=== PATIENT | male | born 1980 | race American Indian/Alaskan Native ===

== ENCOUNTER 2018-01-29 19:03 | Emergency (ER) | payer SELFPAY ==
[~2018-01-29] VITALS: Ht 175.3 cm; Wt 136.1 kg
[~2018-01-29 19:03] MED LIST: AMOX1XR PO; CEPH500 PO; DIPATR PO; HYDACE5 PO; IBUP800 PO; KETO10 PO; OXYACE5T PO; PROM25 PO; RXDIPATR PO; RXSULTRIDS PO; SULTRIDS PO
[2018-01-29] MEDS ORDERED: Roxicodone5 MG PO (21:29)
== END 2018-01-29 21:32 | disposition home or self-care (01) ==
LOC: ER 19:03
DX: S46.212A Strain of muscle, fascia and tendon of other parts of biceps, left arm, initial encounter (principal); X50.0XXA Overexertion from strenuous movement or load, initial encounter; Z88.5 Allergy status to narcotic agent; F17.200 Nicotine dependence, unspecified, uncomplicated
CPT/HCPCS: 73030; 73080; 99283

== ENCOUNTER 2018-10-23 07:54 | Inpatient (IN) | payer OTHER ==
[~2018-10-23] VITALS: Ht 175.3 cm; Wt 124.3 kg
[~2018-10-23 07:54] MED LIST changes: +Roxicodone5 MG PO
[2018-10-23 08:43] LABS: BASOPHILS ABSOLUTE AUTO 0.09 K/mm3 (0.00-0.23); BASOPHILS PERCENT AUTO 0 % (0-2); EOSINOPHILS ABSOLUTE AUTO 0.01 K/mm3 (0.00-0.68); EOSINOPHILS PERCENT AUTO 0 % (0-6); Hematocrit 52.9 % (37.0-53.0); Hemoglobin 18.9 g/dL (13.5-17.5); IMMATURE GRAN ABSOLUTE AUTO 0.23 K/mm3 (0.00-0.10); IMMATURE GRAN PERCENT AUTO 1 % (0-1); LYMPHOCYTES ABSOLUTE AUTO 1.28 K/mm3 (0.84-5.20); LYMPHOCYTES PERCENT AUTO 5 % (21-46); MONOCYTES ABSOLUTE AUTO 1.44 K/mm3 (0.16-1.47); MONOCYTES PERCENT AUTO 5 % (4-13); Mean Corpuscular HGB 33.2 pg (26.0-34.0); Mean Corpuscular HGB Conc 35.7 g/dL (31.5-36.5); Mean Corpuscular Volume 93 fL (80-100); Mean Platelet Volume 9.6 fL (9.1-12.4); NEUTROPHILS ABSOLUTE AUTO 25.67 K/mm3 (1.96-9.15); NEUTROPHILS PERCENT AUTO 89 % (41-73); Platelet Count 248 K/mm3 (150-400); RDW Coefficient Variation 12.4 % (11.7-14.2); RDW Standard Deviation 41.9 fL (35.1-46.3); White Blood Cell Count 28.72 K/mm3 (4.00-11.30)
[2018-10-23 08:59] LABS: Albumin, Blood 3.4 g/dL (3.4-5.0); Albumin/Globulin Ratio 0.8 (0.8-1.8); Bilirubin, Total 1.1 mg/dL (0.1-1.0); Bun/Creatinine Ratio 15.2 (12.0-20.0); Calcium, Blood 8.3 mg/dL (8.5-10.1); Creatinine, Blood 2.04 mg/dL (0.60-1.20); Globulin, Blood 4.4 g/dL (2.2-4.0); Potassium, Blood 4.4 mmol/L (3.5-5.5); Total Protein, Blood 7.8 g/dL (6.4-8.2)
[2018-10-23 09:08] LABS: BAND PERCENT MAN 14 % (0-8); BASOPHILS PERCENT MAN 0 % (0-2); EOSINOPHILS PERCENT MAN 0 % (0-6); LYMPHOCYTES ABSOLUTE MAN 0.28 K/mm3 (0.84-5.20); LYMPHOCYTES PERCENT MAN 1 % (21-46); MONOCYTES ABSOLUTE MAN 0.57 K/mm3 (0.16-1.47); MONOCYTES PERCENT MAN 2 % (4-13); MYELOCYTE ABSOLUTE MAN 0.28 K/mm3 (0.00-0.00); MYELOCYTE PERCENT MAN 1 % (0-0); NEUTROPHILS ABSOLUTE MAN 27.57 K/mm3 (1.96-9.15); SEG NEUTROPHILS PERCENT MAN 82 % (41-73); TOTAL CELLS COUNTED 100
--- NOTE | 2018-10-23 13:35 | NUR ---
PT TO ROOM 213 FROM ER VIA G[facility]. PT ALERT AND ORIENTED. FAMILY ARRIVES WITH PT. PT AMBULATORY, AMSWERS QUESTIONS APPROPRIATELY. STATES HE USUALLY SMOKES 1/2PPD BUT IS WILLING TO TRY A NICOTINE PATCH. DRINKS 2 22OZ BEERS AND 2-4 SHOTS OF FIREBALL A DAY. STARTED WITH ABD PAIN A FEW DAYS AGO.
--- NOTE | 2018-10-23 13:40 | NUR ---
PT UP TO RR.
--- NOTE | 2018-10-23 13:50 | NUR ---
URINE COLLECTED AND SENT TO LAB. PT OFF UNIT AT THIS TIME WITH FAMILY.
[2018-10-23 14:13] LABS: Source, Urine Clean Catch
[2018-10-23 14:15] LABS: Appearance, Urine Hazy (Clear); Blood, Urine 5+ (Neg); Color, Urine Yellow (P-Yellow); Glucose Qualitative, Urine 3+ (Neg); Ketones, Urine 1+ (Neg); Leukocyte Esterase, Urine 1+ (Neg); Nitrite, Urine Neg (Neg); Protein, Urine 3+ (Neg); Specific Gravity, Urine 1.025 (1.003-1.022); Urobilinogen, Urine 1+ (Normal)
[2018-10-23 14:32] LABS: Bilirubin, Urine 1+ (Neg)
[2018-10-23 14:34] LABS: Red Blood Cells, Urine 0-2 /hpf (0-2)
[2018-10-23 14:35] LABS: Bacteria Few /hpf; Squamous Epithelial Cells Rare /hpf (Few)
--- NOTE | 2018-10-23 14:35 | NUR ---
2ND IV PLACED TO RIGHT FA. ATTEMPTS X2. PT MEDICATED WITH ZOFRAN AND DILAUDID PER ORDERS. IVF STARTED PER EMAR. PT SITTING IN BED. FAMILY AT BEDSIDE.
--- NOTE | 2018-10-23 15:30 | NUR ---
pt resting in position of comfort. nadn. will cont to monitor.
--- NOTE | 2018-10-23 15:56 | NUR ---
PT UP TO RR INDEPENDENTLY. FAMILY AT BEDSIDE.
--- NOTE | 2018-10-23 18:18 | NUR ---
PT MEDICATED WITH INSULIN 6 UNITS PER EMAR. ALSO DILAUDID AND ZOFRAN GIVEN. LIGHTS DIMMED.
[2018-10-24 04:38] LABS: BASOPHILS ABSOLUTE AUTO 0.06 K/mm3 (0.00-0.23); BASOPHILS PERCENT AUTO 0 % (0-2); EOSINOPHILS ABSOLUTE AUTO 0.01 K/mm3 (0.00-0.68); EOSINOPHILS PERCENT AUTO 0 % (0-6); Hematocrit 45.4 % (37.0-53.0); Hemoglobin 15.7 g/dL (13.5-17.5); IMMATURE GRAN ABSOLUTE AUTO 0.14 K/mm3 (0.00-0.10); IMMATURE GRAN PERCENT AUTO 1 % (0-1); LYMPHOCYTES ABSOLUTE AUTO 1.33 K/mm3 (0.84-5.20); LYMPHOCYTES PERCENT AUTO 6 % (21-46); MONOCYTES ABSOLUTE AUTO 1.36 K/mm3 (0.16-1.47); MONOCYTES PERCENT AUTO 6 % (4-13); Mean Corpuscular HGB 33.3 pg (26.0-34.0); Mean Corpuscular HGB Conc 34.6 g/dL (31.5-36.5); Mean Platelet Volume 9.8 fL (9.1-12.4); NEUTROPHILS PERCENT AUTO 87 % (41-73); Platelet Count 229 K/mm3 (150-400); RDW Coefficient Variation 12.5 % (11.7-14.2); RDW Standard Deviation 44.5 fL (35.1-46.3); Red Blood Cell Count 4.71 M/mm3 (4.30-5.90)
[2018-10-24 04:44] LABS: Mean Corpuscular Volume 96 fL (80-100)
[2018-10-24 04:55] LABS: Albumin, Blood 2.7 g/dL (3.4-5.0); Albumin/Globulin Ratio 0.7 (0.8-1.8); Bilirubin, Total 0.8 mg/dL (0.1-1.0); Bun/Creatinine Ratio 21.3 (12.0-20.0); Calcium, Blood 6.5 mg/dL (8.5-10.1); Creatinine, Blood 2.02 mg/dL (0.60-1.20); Globulin, Blood 3.8 g/dL (2.2-4.0); Potassium, Blood 4.6 mmol/L (3.5-5.5); Total Protein, Blood 6.5 g/dL (6.4-8.2)
--- NOTE | 2018-10-24 06:55 | NUR ---
REPORT FROM TRVA Lock RN. ASSUMED PT CARE.
--- NOTE | 2018-10-24 07:08 | NUR ---
PT VSS T/O NIGHT. PT REMAINS QUITE PAINFUL, MED W/1MG IV DILAUDID PRN. PT DENIED NAUSEA, REP HAVING DIARRHEA NOW. URINE SABA, OUTPUT DEC. PT NPO PER ORDERS, IVF CONT. PT AMB INDEP IN ROOM, IS USING CALL LIGHT FOR ASSISTNACE, REP GIVEN TO ONCOMING RN.
--- NOTE | 2018-10-24 07:35 | NUR ---
PT STATES PAIN OK AT THIS TIME. DENIES NAUSEA. DENIES NEEDS. DENIES HALLUCINATIONS AND SWEATING. SEE ASSESSMENT.
--- NOTE | 2018-10-24 08:00 | NUR ---
PT UP TO SHOWER. NEW GOWN AND PANTS PROVIDED. PT IV WRAPPED. TO SHOWER INDEPENDENTLY.
--- NOTE | 2018-10-24 08:46 | NUR ---
PT MEDICATED PER EMAR. LIGHTS DIMMED AND DOOR CLOSED FOR PRIVACY. IV INFUSING WELL. PT FEELS BETTER AFTER SHOWER.
--- NOTE | 2018-10-24 09:15 | NUR ---
PT RESTING IN POSITION OF COMFORT. APPEARS TO BE SLEEPING.
--- NOTE | 2018-10-24 10:15 | NUR ---
DR ISTRATE TO ROOM. PLAN TO REPEAT LABS. ADVANCE DIET TO CLEARS. SPRITE PROVIDED TO PT. WILL MEDICATED FOR PAIN 02/02.
--- NOTE | 2018-10-24 10:44 | NUR ---
PT MEDICATED WITH DILAUDID PER ORDERS FOR PAIN 02/02.
--- NOTE | 2018-10-24 11:30 | NUR ---
PT APPEARS TO BE RESTING IN POSITION OF COMFORT. EYES CLOSED. RESP EVEN AND NON LABORED.
--- NOTE | 2018-10-24 12:55 | NUR ---
PT MEDICATED FOR C/O PAIN. 6 UNITS OF INSULIN GIVEN FOR CBG OF 330. BANANA BAG STARTED. PT WITH FAMILY AT BEDSIDE.
--- NOTE | 2018-10-24 13:40 | NUR ---
PT AMB OFF UNIT WITH FAMILY.
--- NOTE | 2018-10-24 14:59 | NUR ---
ICE AND DIET SODA PROVIDED. ADDITIONAL FAMILY PRESENT.
--- NOTE | 2018-10-24 16:30 | NUR ---
PT RESTING MORE COMFORTABLY. FAMILY AT BEDSIDE.
--- NOTE | 2018-10-24 19:00 | NUR ---
PT MEDICATED WITH DILAUDID AND INSULIN PER ORDERS.
--- NOTE | 2018-10-25 03:58 | NUR ---
SHIFT SUMMARY: PT A&O X4. CONTINUES TO BE TACHYCARDIC WITH HR RANGING FROM 100-110, OTHERWISE VS WNL. IS PAINFUL T/O SHIFT. GIVEN DILAUDID PRN PER EMAR. LIDO PATCH APPLIED TO BACK. USING HEAT PAD ON ABD. C/O N/V ONCE; EMESIS X1. PT NPO AT THIS TIME PER ORDERS. FLUIDS INFUSING. IND AND AMBULATING IN ROOM. PT OCCASIONALLY GOES OUTSIDE TO SMOKE; PT EDUCATED ON SMOKING CESSATION SEVERSAL TIMES. CIWA'S STABLE RANGING FROM 0-4.
[2018-10-25 04:54] LABS: BASOPHILS ABSOLUTE AUTO 0.04 K/mm3 (0.00-0.23); BASOPHILS PERCENT AUTO 0 % (0-2); EOSINOPHILS ABSOLUTE AUTO 0.01 K/mm3 (0.00-0.68); EOSINOPHILS PERCENT AUTO 0 % (0-6); Hematocrit 38.4 % (37.0-53.0); Hemoglobin 13.5 g/dL (13.5-17.5); IMMATURE GRAN ABSOLUTE AUTO 0.28 K/mm3 (0.00-0.10); IMMATURE GRAN PERCENT AUTO 2 % (0-1); LYMPHOCYTES ABSOLUTE AUTO 1.05 K/mm3 (0.84-5.20); LYMPHOCYTES PERCENT AUTO 7 % (21-46); MONOCYTES ABSOLUTE AUTO 1.22 K/mm3 (0.16-1.47); MONOCYTES PERCENT AUTO 8 % (4-13); Mean Corpuscular HGB 33.6 pg (26.0-34.0); Mean Corpuscular HGB Conc 35.2 g/dL (31.5-36.5); Mean Corpuscular Volume 96 fL (80-100); NEUTROPHILS ABSOLUTE AUTO 12.35 K/mm3 (1.96-9.15); NEUTROPHILS PERCENT AUTO 83 % (41-73); NRBC ABSOLUTE 0.05 K/mm3 (0.00-0.02); NRBC Auto 0.3 /100 WBC (0.0-0.2); Platelet Count 189 K/mm3 (150-400); RDW Coefficient Variation 12.3 % (11.7-14.2); RDW Standard Deviation 43.1 fL (35.1-46.3); Red Blood Cell Count 4.02 M/mm3 (4.30-5.90); White Blood Cell Count 14.95 K/mm3 (4.00-11.30)
[2018-10-25 05:11] LABS: Alanine Aminotransfer (ALT/SGP 21 U/L (12-78); Albumin, Blood 2.3 g/dL (3.4-5.0); Albumin/Globulin Ratio 0.6 (0.8-1.8); Alk Phos 82 U/L (50-136); Amylase, Blood 311 U/L (25-115); Anion Gap 9 mmol/L (6-16); Aspartate Aminotrans (AST/SGOT 45 U/L (12-37); Bilirubin, Total 0.7 mg/dL (0.1-1.0); Blood Urea Nitrogen 23 mg/dL (8-24); Bun/Creatinine Ratio 27.2 (12.0-20.0); CO2, Blood 24 mmol/L (21-32); Calcium, Blood 6.5 mg/dL (8.5-10.1); Chloride, Blood 97 mmol/L (98-108); Creatinine, Blood 0.85 mg/dL (0.60-1.20); Glomerular Filtration Rate >60 (60-); Glucose, Blood 225 mg/dL (70-99); Potassium, Blood 3.9 mmol/L (3.5-5.5); Sodium, Blood 130 mmol/L (136-145); Total Protein, Blood 6.3 g/dL (6.4-8.2)
--- NOTE | 2018-10-25 08:52 | NUR ---
ISTRATE RECENTLY HERE.
--- NOTE | 2018-10-25 18:42 | NUR ---
SHIFT SUMMARY PT TOLERATING SMALL AMT OF C.L.. PT BEEN ASSISTED WITH ADL'S PRN. PT BEEN MED FOR PAIN. PT BEEN EDUCATED ON SMOKING CESSATION. PT REPORTS NO LONGER HAVING SMALL AMT OF EMESIS HE DID EARLIER THIS AM WHEN DR HERRERA WAS PRESENT. PT UP IND.
--- NOTE | 2018-10-26 04:34 | NUR ---
SHIFT SUMMARY: PT HAS DONE WELL THIS SHIFT. NO COMPLAINTS OF N/V. NO EMESIS. PAIN MANAGED WITH 1MG OF DILAUDID PER EMAR. JARETH CLR LIQ DIET. VOIDING WELL. CONTINUES TO BURP, NO FLATUS. PT IND IN ROOM. OOB FREQ. FLUIDS INFUSING. NO CONCERNS AT THIS TIME.
[2018-10-26 05:38] LABS: Hematocrit 34.1 % (37.0-53.0); Hemoglobin 12.1 g/dL (13.5-17.5); Mean Corpuscular HGB 33.4 pg (26.0-34.0); Mean Corpuscular HGB Conc 35.5 g/dL (31.5-36.5); Mean Corpuscular Volume 94 fL (80-100); Mean Platelet Volume 9.3 fL (9.1-12.4); NRBC ABSOLUTE 0.23 K/mm3 (0.00-0.02); NRBC Auto 1.3 /100 WBC (0.0-0.2); Platelet Count 191 K/mm3 (150-400); RDW Coefficient Variation 12.1 % (11.7-14.2); RDW Standard Deviation 42.3 fL (35.1-46.3); Red Blood Cell Count 3.62 M/mm3 (4.30-5.90); White Blood Cell Count 17.79 K/mm3 (4.00-11.30)
[2018-10-26 06:18] LABS: Alanine Aminotransfer (ALT/SGP 21 U/L (12-78); Albumin, Blood 2.2 g/dL (3.4-5.0); Albumin/Globulin Ratio 0.5 (0.8-1.8); Alk Phos 78 U/L (50-136); Amylase, Blood 110 U/L (25-115); Anion Gap 10 mmol/L (6-16); Aspartate Aminotrans (AST/SGOT 35 U/L (12-37); Bilirubin, Total 0.7 mg/dL (0.1-1.0); Blood Urea Nitrogen 14 mg/dL (8-24); Bun/Creatinine Ratio 23.1 (12.0-20.0); CO2, Blood 25 mmol/L (21-32); Calcium, Blood 7.4 mg/dL (8.5-10.1); Chloride, Blood 93 mmol/L (98-108); Creatinine, Blood 0.61 mg/dL (0.60-1.20); Globulin, Blood 4.2 g/dL (2.2-4.0); Glomerular Filtration Rate >60 (60-); Glucose, Blood 184 mg/dL (70-99); Potassium, Blood 3.5 mmol/L (3.5-5.5); Sodium, Blood 128 mmol/L (136-145); Total Protein, Blood 6.4 g/dL (6.4-8.2)
[2018-10-26 06:50] LABS: BAND PERCENT MAN 5 % (0-8); BASOPHILS PERCENT MAN 0 % (0-2); EOSINOPHILS PERCENT MAN 0 % (0-6); LYMPHOCYTES ABSOLUTE MAN 1.77 K/mm3 (0.84-5.20); LYMPHOCYTES PERCENT MAN 10 % (21-46); MONOCYTES ABSOLUTE MAN 2.31 K/mm3 (0.16-1.47); MONOCYTES PERCENT MAN 13 % (4-13); MYELOCYTE ABSOLUTE MAN 0.35 K/mm3 (0.00-0.00); MYELOCYTE PERCENT MAN 2 % (0-0); NEUTROPHILS ABSOLUTE MAN 13.34 K/mm3 (1.96-9.15); SEG NEUTROPHILS PERCENT MAN 70 % (41-73); TOTAL CELLS COUNTED 100
--- NOTE | 2018-10-26 08:29 | NUR ---
IMAGING: ULTRASOUND IN ROOM. MD ORDER FOR KUB AND GUIAC STOOL R/T PATIENT SYMPTOMS OF DARK STOOL AND NO FLATUS.
[2018-10-26 12:58] LABS: Stool Occult Blood Guaiac 1 Pos (Neg)
--- NOTE | 2018-10-26 13:51 | NUR ---
STOOL: PT HAD POSITIVE GUIAC. NOTIFIED. NEW ORDERS ENTERED.
[2018-10-26 18:43] LABS: Adenovirus F 40/41 Not Detected (NOT DETECT); Astrovirus Not Detected (NOT DETECT); Campylobacter Sp Not Detected (NOT DETECT); Cryptosporidium Not Detected (NOT DETECT); Cyclospora Cayetanensis Not Detected (NOT DETECT); E. Coli O157 Not Detected (NOT DETECT); Entamoeba Histolytica Not Detected (NOT DETECT); Enteroaggregative E. coli-EAEC Not Detected (NOT DETECT); Enteropathogenic E. coli-EPEC Detected (NOT DETECT); Enterotoxigenic E. coli-ETEC Not Detected (NOT DETECT); Giardia Lamblia Not Detected (NOT DETECT); Norovirus GI/GII Not Detected (NOT DETECT); Plesiomonas Shigelloides Not Detected (NOT DETECT); Rotavirus A Not Detected (NOT DETECT); Salmonella Sp Not Detected (NOT DETECT); Sapovirus Not Detected (NOT DETECT); Shiga Toxin-prod E. coli-STEC Not Detected (NOT DETECT); Shigella/Enteroin E. coli-EIEC Not Detected (NOT DETECT); Vibrio Cholerae Not Detected (NOT DETECT); Vibrio Sp Not Detected (NOT DETECT); Yersinia Enterocolitica Not Detected (NOT DETECT)
--- NOTE | 2018-10-26 18:45 | NUR ---
pt has cont to have dark small stools and emesis this shift, occult stool was positive, md aware. pt started on protonix, compazine prn and simethicone drops. cont iv fluids. pt may advance diet as tolerated. pt up to ambulate indep. abd distended. shower x2 today. us and abd xray completed this am. pt has no complaints of pain this shift. uses call light appropriately prn.
[2018-10-27 06:17] LABS: Hematocrit 31.6 % (37.0-53.0); Hemoglobin 10.9 g/dL (13.5-17.5); Mean Corpuscular HGB 32.3 pg (26.0-34.0); Mean Corpuscular HGB Conc 34.5 g/dL (31.5-36.5); Mean Corpuscular Volume 94 fL (80-100); NRBC ABSOLUTE 0.33 K/mm3 (0.00-0.02); NRBC Auto 1.5 /100 WBC (0.0-0.2); Platelet Count 200 K/mm3 (150-400); RDW Coefficient Variation 12.4 % (11.7-14.2); RDW Standard Deviation 42.1 fL (35.1-46.3); Red Blood Cell Count 3.37 M/mm3 (4.30-5.90); White Blood Cell Count 21.93 K/mm3 (4.00-11.30)
[2018-10-27 06:30] LABS: Alanine Aminotransfer (ALT/SGP 20 U/L (12-78); Albumin, Blood 2.1 g/dL (3.4-5.0); Albumin/Globulin Ratio 0.5 (0.8-1.8); Alk Phos 94 U/L (50-136); Anion Gap 11 mmol/L (6-16); Aspartate Aminotrans (AST/SGOT 28 U/L (12-37); Bilirubin, Total 0.8 mg/dL (0.1-1.0); Blood Urea Nitrogen 14 mg/dL (8-24); Bun/Creatinine Ratio 23.4 (12.0-20.0); CO2, Blood 26 mmol/L (21-32); Calcium, Blood 7.6 mg/dL (8.5-10.1); Chloride, Blood 94 mmol/L (98-108); Globulin, Blood 4.1 g/dL (2.2-4.0); Glomerular Filtration Rate >60 (60-); Glucose, Blood 212 mg/dL (70-99); Potassium, Blood 3.1 mmol/L (3.5-5.5); Sodium, Blood 131 mmol/L (136-145); Total Protein, Blood 6.2 g/dL (6.4-8.2)
[2018-10-27 06:36] LABS: BAND PERCENT MAN 7 % (0-8); BASOPHILS PERCENT MAN 0 % (0-2); EOSINOPHILS PERCENT MAN 0 % (0-6); LYMPHOCYTES ABSOLUTE MAN 0.87 K/mm3 (0.84-5.20); LYMPHOCYTES PERCENT MAN 4 % (21-46); METAMYELOCYTE ABSOLUTE MAN 0.21 K/mm3 (0.00-0.00); METAMYELOCYTE PERCENT MAN 1 % (0-0); MONOCYTES ABSOLUTE MAN 1.53 K/mm3 (0.16-1.47); MONOCYTES PERCENT MAN 7 % (4-13); MYELOCYTE ABSOLUTE MAN 0.43 K/mm3 (0.00-0.00); MYELOCYTE PERCENT MAN 2 % (0-0); NEUTROPHILS ABSOLUTE MAN 18.85 K/mm3 (1.96-9.15); SEG NEUTROPHILS PERCENT MAN 79 % (41-73); TOTAL CELLS COUNTED 100
--- NOTE | 2018-10-27 07:00 | NUR ---
REPORT FROM MARY CARDONA. ASSUMED PT CARE. PT APPEARS TO BE SLEEPING, NADN. IVF INFUSING. RESP EVEN AND NON-LABORED.
--- NOTE | 2018-10-27 07:25 | NUR ---
PT RESTING IN ARM CHAIR. NADN. CALL LIGHT IN REACH. 20G TO LEFT AC WITH IVF INFUSING.
--- NOTE | 2018-10-27 07:46 | NUR ---
SHIFT SUMMARY: PT NOW ON ISOLATION R/T DETECTION OF E-COLI. RECIEVING ORAL VANCO AND CLINDAMYCIN FOR BACTERIA FOUND IN URINE. PT REPORTS HAVING 3 EPISODES OF DIARRHEA. STATES THEY WERE NORMAL IN COLOR. NO N/V THROUGHOUT NIGHT. C/O NOT GETTING SLEEP T/O NIGHT. PT OVERALL APPEARS TO BE IN DISTRESS/ILL. GIVEN 1MG DILAUDID ONCE. PAIN MANAGEMENT IMPROVING. JARETH REG DIET. FLUIDS INFUSING. IND IN RM.
--- NOTE | 2018-10-27 08:27 | NUR ---
PT MEDICATED PER EMAR. PT GIVEN IV PAIN MEDS FOR C/O PAIN 02/02. ASSESSMENT CHARTED. ROOM TIDIED BY HOUSE KEEPING.
--- NOTE | 2018-10-27 09:12 | NUR ---
PT STATES PAIN IMPROVED. ROOM TIDIED. TRAY REMOVED. PT SITTING ON SIDE OF BED.
--- NOTE | 2018-10-27 09:24 | NUR ---
PT MOVING THINGS AROUND IN ROOM. INT AT THIS TIME.
--- NOTE | 2018-10-27 09:45 | NUR ---
ISTRATE TO ROOM. PLAN TO DC HOME IF LIPASE WNL. PT AWARE.
--- NOTE | 2018-10-27 10:15 | NUR ---
PT APPEARS TO BE SLEEPING IN BED. FAMILY TO ROOM, DID NOT WANT TO DISTURB. LEFT FOR NOW.
--- NOTE | 2018-10-27 11:41 | NUR ---
PT UP IN RR INDEPENDENTLY. PENDING DC. PT MEDICATED PER EMAR. PT PLAN TO GO TO [facility] IN [place].
--- NOTE | 2018-10-27 12:50 | NUR ---
20G TO LEFT AC DC. DRESSING PLACED. PT UP TO SHOWER INDEPENDENTLY.
[2018-10-27] MEDS ORDERED: ACET325 PO (13:34)
[2018-10-27] MEDS ORDERED: Calcium Carbon500 M1 PO (13:35)
[2018-10-27] MEDS ORDERED: INSULANPEN SC (13:36)
[2018-10-27] MEDS ORDERED: INSR10I (13:41)
[2018-10-27] MEDS ORDERED: LIDO700A20 TOP (13:42)
[2018-10-27] MEDS ORDERED: METR500 PO (13:43)
[2018-10-27] MEDS ORDERED: Nicotine Patch1 EAC5 TOP (13:44)
[2018-10-27] MEDS ORDERED: ONDA4 PO (13:45)
[2018-10-27] MEDS ORDERED: SIME80CH PO (13:47)
[2018-10-27] MEDS ORDERED: VANC250 PO (13:48)
[2018-10-27] MEDS ORDERED: SACC250C PO (13:48)
--- NOTE | 2018-10-27 14:12 | NUR ---
PT DC HOME WITH FAMILY. ALL BELONGINGS SENT HOME. PT INSTRUCTIONS REVIEWED. PT VERBALIZED UNDERSTANDING.
== END 2018-10-27 14:14 | disposition home or self-care (01) | DRG 871 ==
LOC: ER 07:54 → ERHOLD 11:40 → SURS 11:40
PROVIDERS: Family Medicine; Physician Assistant; ADMIT Internal Medicine
DX: A41.9 Sepsis, unspecified organism (principal); K85.20 Alcohol induced acute pancreatitis without necrosis or infection; N39.0 Urinary tract infection, site not specified; N17.9 Acute kidney failure, unspecified; E87.1 Hypo-osmolality and hyponatremia; F17.200 Nicotine dependence, unspecified, uncomplicated; R65.20 Severe sepsis without septic shock; E11.69 Type 2 diabetes mellitus with other specified complication; E11.65 Type 2 diabetes mellitus with hyperglycemia; F90.9 Attention-deficit hyperactivity disorder, unspecified type; F31.9 Bipolar disorder, unspecified; E86.0 Dehydration; E66.9 Obesity, unspecified; F10.20 Alcohol dependence, uncomplicated; M54.9 Dorsalgia, unspecified; Z88.5 Allergy status to narcotic agent
CPT/HCPCS: 36415; 74018; 74176; 76705; 80053; 81001; 82150; 82270; 82330; 82947; 83036; 83605; 83690; 85025; 87040; 87086; 87324; 87338; 87507; 96361; 96365; 96366; 96375; 96376; 99285-25; C9113; J0696; J1170; J1650; J1815; J2405; J2765; J3411; J3475; J7030; J7042

== ENCOUNTER 2018-11-18 13:19 | Inpatient (IN) | payer OTHER ==
[~2018-11-18] VITALS: Ht 175.3 cm; Wt 108.9 kg
[~2018-11-18 13:19] MED LIST changes: +ACET325 PO; +Calcium Carbon500 M1 PO; +INSR10I SC; +INSULANPEN SC; +LIDO700A20 TOP; +METR500 PO; +Nicotine Patch1 EAC5 TOP; +ONDA4 PO; +SIME80CH PO; +VANC250 PO
[2018-11-18 13:47] LABS: BASOPHILS ABSOLUTE AUTO 0.03 K/mm3 (0.00-0.23); BASOPHILS PERCENT AUTO 0 % (0-2); EOSINOPHILS ABSOLUTE AUTO 0.07 K/mm3 (0.00-0.68); EOSINOPHILS PERCENT AUTO 1 % (0-6); Hematocrit 33.2 % (37.0-53.0); Hemoglobin 10.7 g/dL (13.5-17.5); IMMATURE GRAN ABSOLUTE AUTO 0.06 K/mm3 (0.00-0.10); IMMATURE GRAN PERCENT AUTO 0 % (0-1); LYMPHOCYTES ABSOLUTE AUTO 1.68 K/mm3 (0.84-5.20); LYMPHOCYTES PERCENT AUTO 11 % (21-46); MONOCYTES ABSOLUTE AUTO 0.89 K/mm3 (0.16-1.47); MONOCYTES PERCENT AUTO 6 % (4-13); Mean Corpuscular HGB 30.1 pg (26.0-34.0); Mean Corpuscular HGB Conc 32.2 g/dL (31.5-36.5); Mean Corpuscular Volume 94 fL (80-100); Mean Platelet Volume 8.4 fL (9.1-12.4); NEUTROPHILS ABSOLUTE AUTO 12.16 K/mm3 (1.96-9.15); NEUTROPHILS PERCENT AUTO 82 % (41-73); Platelet Count 594 K/mm3 (150-400); RDW Coefficient Variation 16.3 % (11.7-14.2); RDW Standard Deviation 54.5 fL (35.1-46.3); Red Blood Cell Count 3.55 M/mm3 (4.30-5.90); White Blood Cell Count 14.89 K/mm3 (4.00-11.30)
[2018-11-18 14:03] LABS: Alanine Aminotransfer (ALT/SGP 22 U/L (12-78); Albumin, Blood 2.9 g/dL (3.4-5.0); Albumin/Globulin Ratio 0.5 (0.8-1.8); Alk Phos 114 U/L (50-136); Anion Gap 7 mmol/L (6-16); Aspartate Aminotrans (AST/SGOT 27 U/L (12-37); Bilirubin, Total 0.8 mg/dL (0.1-1.0); Blood Urea Nitrogen 10 mg/dL (8-24); Bun/Creatinine Ratio 18.6 (12.0-20.0); CO2, Blood 25 mmol/L (21-32); Calcium, Blood 8.8 mg/dL (8.5-10.1); Chloride, Blood 101 mmol/L (98-108); Creatinine, Blood 0.54 mg/dL (0.60-1.20); Globulin, Blood 5.6 g/dL (2.2-4.0); Glomerular Filtration Rate >60 (60-); Glucose, Blood 249 mg/dL (70-99); Potassium, Blood 4.1 mmol/L (3.5-5.5); Sodium, Blood 133 mmol/L (136-145); Total Protein, Blood 8.5 g/dL (6.4-8.2)
[2018-11-18] MEDS ORDERED: FURO40 PO (17:19)
[2018-11-18] MEDS ORDERED: MAGOXI400 PO (17:20)
[2018-11-18] MEDS ORDERED: PANT40 PO (17:20)
[2018-11-18] MEDS ORDERED: THERA1 EACH PO (17:21)
[2018-11-18] MEDS ORDERED: SACC250C PO (17:32)
[2018-11-18] MEDS ORDERED: POLY500 PO (17:33)
[2018-11-18] MEDS ORDERED: Verotin-Gr Cap1 EACH PO (17:34)
[2018-11-19 03:58] LABS: BASOPHILS ABSOLUTE AUTO 0.04 K/mm3 (0.00-0.23); BASOPHILS PERCENT AUTO 0 % (0-2); EOSINOPHILS ABSOLUTE AUTO 0.16 K/mm3 (0.00-0.68); EOSINOPHILS PERCENT AUTO 1 % (0-6); Hematocrit 32.9 % (37.0-53.0); Hemoglobin 10.5 g/dL (13.5-17.5); IMMATURE GRAN ABSOLUTE AUTO 0.08 K/mm3 (0.00-0.10); IMMATURE GRAN PERCENT AUTO 1 % (0-1); LYMPHOCYTES ABSOLUTE AUTO 1.83 K/mm3 (0.84-5.20); LYMPHOCYTES PERCENT AUTO 11 % (21-46); MONOCYTES ABSOLUTE AUTO 1.17 K/mm3 (0.16-1.47); MONOCYTES PERCENT AUTO 7 % (4-13); Mean Corpuscular HGB 29.5 pg (26.0-34.0); Mean Corpuscular HGB Conc 31.9 g/dL (31.5-36.5); Mean Corpuscular Volume 92 fL (80-100); Mean Platelet Volume 8.6 fL (9.1-12.4); NEUTROPHILS ABSOLUTE AUTO 14.03 K/mm3 (1.96-9.15); NEUTROPHILS PERCENT AUTO 81 % (41-73); Platelet Count 547 K/mm3 (150-400); RDW Coefficient Variation 16.8 % (11.7-14.2); RDW Standard Deviation 55.9 fL (35.1-46.3); Red Blood Cell Count 3.56 M/mm3 (4.30-5.90); White Blood Cell Count 17.31 K/mm3 (4.00-11.30)
[2018-11-19 04:13] LABS: International Normalized Ratio 1.16; Prothrombin Time Results 12.1 Sec (9.7-11.5)
[2018-11-19 04:18] LABS: Alanine Aminotransfer (ALT/SGP 20 U/L (12-78); Albumin, Blood 2.6 g/dL (3.4-5.0); Albumin/Globulin Ratio 0.5 (0.8-1.8); Alk Phos 108 U/L (50-136); Anion Gap 10 mmol/L (6-16); Aspartate Aminotrans (AST/SGOT 22 U/L (12-37); Bilirubin, Total 0.7 mg/dL (0.1-1.0); Blood Urea Nitrogen 7 mg/dL (8-24); Bun/Creatinine Ratio 12.8 (12.0-20.0); CO2, Blood 23 mmol/L (21-32); Calcium, Blood 8.8 mg/dL (8.5-10.1); Chloride, Blood 102 mmol/L (98-108); Creatinine, Blood 0.55 mg/dL (0.60-1.20); Globulin, Blood 5.3 g/dL (2.2-4.0); Glomerular Filtration Rate >60 (60-); Glucose, Blood 149 mg/dL (70-99); Potassium, Blood 4.1 mmol/L (3.5-5.5); Sodium, Blood 135 mmol/L (136-145); Total Protein, Blood 7.9 g/dL (6.4-8.2)
--- NOTE | 2018-11-19 06:58 | NUR ---
PCU NOC SHIFT SUMMARY PATIENT ARRIVED TO UNIT VIA GURNEY FROME R AND AMBULATED TO UNIT BED. VSS ON ROOM AIR. PATIENT ASSEMENT WNL EXCEPT FOR DISTENDED ABD AND ABD PAIN. PRIMER POWDER BLENDER WET STARTED WITH NS FLUIDS. PATIENT HAD NO ACUTE EVENS T/O SHIFT. REPORTED TO [facility] NURSE LURDES MINA. REPORT GIVEN TO [facility] AND PATIENT LEFT UNIT AT APPROX 0637 FOR [facility].
== END 2018-11-19 06:37 | disposition short-term general hospital (02) | DRG 871 ==
LOC: ER 13:19 → ERHOLD 17:32 → PCU 19:05
PROVIDERS: Emergency Medicine; Nurse Practitioner Acute Care; ADMIT Internal Medicine
DX: A41.9 Sepsis, unspecified organism (principal); K85.92 Acute pancreatitis with infected necrosis, unspecified; K86.0 Alcohol-induced chronic pancreatitis; F31.9 Bipolar disorder, unspecified; F17.210 Nicotine dependence, cigarettes, uncomplicated; F10.20 Alcohol dependence, uncomplicated; F90.9 Attention-deficit hyperactivity disorder, unspecified type; E11.65 Type 2 diabetes mellitus with hyperglycemia; D64.9 Anemia, unspecified
CPT/HCPCS: 36415; 74177; 80053; 82947; 83605; 83690; 83735; 85025; 85610; 87040; 96365-59; 96375-59; 96376-59; 99285-25; J1170; J2185; J2405; J2543; J2765; J7030; J7120; Q9967

== ENCOUNTER 2018-12-22 07:06 | Inpatient (IN) | payer OTHER ==
[~2018-12-22] VITALS: Ht 175.3 cm; Wt 96.7 kg
[~2018-12-22 07:06] MED LIST changes: +FURO40 PO; +MAGOXI400 PO; +PANT40 PO; +POLY500 PO; +SACC250C PO; +THERA1 EACH PO; +Verotin-Gr Cap1 EACH PO
[2018-12-22 07:58] LABS: BASOPHILS ABSOLUTE AUTO 0.02 K/mm3 (0.00-0.23); BASOPHILS PERCENT AUTO 0 % (0-2); EOSINOPHILS PERCENT AUTO 0 % (0-6); Hematocrit 36.2 % (37.0-53.0); Hemoglobin 11.6 g/dL (13.5-17.5); IMMATURE GRAN PERCENT AUTO 1 % (0-1); LYMPHOCYTES ABSOLUTE AUTO 2.42 K/mm3 (0.84-5.20); LYMPHOCYTES PERCENT AUTO 14 % (21-46); MONOCYTES ABSOLUTE AUTO 1.29 K/mm3 (0.16-1.47); MONOCYTES PERCENT AUTO 7 % (4-13); Mean Corpuscular HGB 25.8 pg (26.0-34.0); Mean Corpuscular Volume 81 fL (80-100); Mean Platelet Volume 8.5 fL (9.1-12.4); NEUTROPHILS ABSOLUTE AUTO 13.81 K/mm3 (1.96-9.15); NEUTROPHILS PERCENT AUTO 78 % (41-73); Platelet Count 824 K/mm3 (150-400); RDW Coefficient Variation 20.9 % (11.7-14.2); RDW Standard Deviation 61.1 fL (35.1-46.3); Red Blood Cell Count 4.49 M/mm3 (4.30-5.90); White Blood Cell Count 17.64 K/mm3 (4.00-11.30)
[2018-12-22 08:13] LABS: International Normalized Ratio 1.18; Prothrombin Time Results 12.3 Sec (9.7-11.5)
[2018-12-22 08:19] LABS: Alanine Aminotransfer (ALT/SGP 17 U/L (12-78); Albumin, Blood 3.2 g/dL (3.4-5.0); Albumin/Globulin Ratio 0.5 (0.8-1.8); Alk Phos 154 U/L (50-136); Anion Gap 14 mmol/L (6-16); Aspartate Aminotrans (AST/SGOT 28 U/L (12-37); Bilirubin, Total 0.9 mg/dL (0.1-1.0); Blood Urea Nitrogen 9 mg/dL (8-24); CO2, Blood 39 mmol/L (21-32); Calcium, Blood 10.5 mg/dL (8.5-10.1); Chloride, Blood 89 mmol/L (98-108); Creatinine, Blood 0.82 mg/dL (0.60-1.20); Ethanol (Alcohol), Blood, Med <3 mg/dL; Globulin, Blood 6.2 g/dL (2.2-4.0); Glomerular Filtration Rate >60 (60-); Glucose, Blood 212 mg/dL (70-99); Magnesium, Blood 2.1 mg/dL (1.6-2.4); Potassium, Blood 2.7 mmol/L (3.5-5.5); Sodium, Blood 142 mmol/L (136-145); Total Protein, Blood 9.4 g/dL (6.4-8.2)
[2018-12-22 09:53] LABS: U Amphetamine Screen Not Detected; U Barbituate Screen Not Detected; U Benzodiazapine Screen Not Detected; U Buprenorphine Screen Not Detected; U Cannabinoids Screen Not Detected; U Cocaine Screen Not Detected; U Methadone Screen Not Detected; U Methamphetamine Screen Not Detected; U Opiates Screen DETECTED; U Oxycodone Screen Not Detected; U Phencyclidine Screen Not Detected; U Propoxyphene Screen Not Detected
[2018-12-22] MEDS ORDERED: ELIQUIS5 MG PO (12:32)
[2018-12-22] MEDS ORDERED: GABA300 PO (12:33)
[2018-12-22] MEDS ORDERED: HYDMOR8 PO (12:33)
[2018-12-22] MEDS ORDERED: INSR10I SC (12:34)
[2018-12-22] MEDS ORDERED: BASAGLAR K100 UNIT/1 SC (12:35)
--- NOTE | 2018-12-22 13:16 | NUR ---
PT ARRIVED TO THE UNIT VIA WHEELCHAIR AT 1300. IV FLUIDS RUNNING, PT COMPLAINS OF PAIN.
--- NOTE | 2018-12-22 17:19 | NUR ---
PT'S BLOOD GLUCOSE WAS 218 AT 1619. PT TOOK HIS OWN BLOOD GLUCOSE READING ON HIS OWN METER.
--- NOTE | 2018-12-22 18:25 | NUR ---
PT IS ALERT AND ORIENTED AND COOPERATIVE WITH CARE. HE IS KNOWLEDGABLE ABOUT HIS CONDITION. HE COMPLAINS OF BACK AND ABDOMEN PAIN, TREATED WITH DILAUDID. HE HAD AN EPISODE OF N/V THIS AFTERNOON, TREATED WITH ZOFRAN. THE PT TOOK HIS OWN BLOOD SUGAR THIS EVENING WITH HIS OWN MONITOR. HE HAS BEEN WALKING AROUND THE HOSPITAL WITH HIS FAMILY. WILL CONTINUE TO MONITOR
--- NOTE | 2018-12-22 18:33 | NUR ---
PT HAS A DRAIN IN HIS PANCREAS COMING OUT OF HIS LEFT BACK.
[2018-12-23 05:20] LABS: BASOPHILS ABSOLUTE AUTO 0.01 K/mm3 (0.00-0.23); BASOPHILS PERCENT AUTO 0 % (0-2); EOSINOPHILS ABSOLUTE AUTO 0.17 K/mm3 (0.00-0.68); EOSINOPHILS PERCENT AUTO 1 % (0-6); Hematocrit 27.6 % (37.0-53.0); Hemoglobin 8.5 g/dL (13.5-17.5); IMMATURE GRAN ABSOLUTE AUTO 0.08 K/mm3 (0.00-0.10); IMMATURE GRAN PERCENT AUTO 1 % (0-1); LYMPHOCYTES ABSOLUTE AUTO 2.66 K/mm3 (0.84-5.20); LYMPHOCYTES PERCENT AUTO 18 % (21-46); MONOCYTES ABSOLUTE AUTO 1.14 K/mm3 (0.16-1.47); MONOCYTES PERCENT AUTO 8 % (4-13); Mean Corpuscular HGB 25.6 pg (26.0-34.0); Mean Corpuscular HGB Conc 30.8 g/dL (31.5-36.5); Mean Corpuscular Volume 83 fL (80-100); Mean Platelet Volume 8.7 fL (9.1-12.4); NEUTROPHILS ABSOLUTE AUTO 10.73 K/mm3 (1.96-9.15); NEUTROPHILS PERCENT AUTO 73 % (41-73); Platelet Count 520 K/mm3 (150-400); RDW Coefficient Variation 21.1 % (11.7-14.2); RDW Standard Deviation 63.8 fL (35.1-46.3); Red Blood Cell Count 3.32 M/mm3 (4.30-5.90); White Blood Cell Count 14.79 K/mm3 (4.00-11.30)
[2018-12-23 05:53] LABS: Anion Gap 5 mmol/L (6-16); Blood Urea Nitrogen 10 mg/dL (8-24); Bun/Creatinine Ratio 11.8 (12.0-20.0); CO2, Blood 40 mmol/L (21-32); Calcium, Blood 8.8 mg/dL (8.5-10.1); Chloride, Blood 92 mmol/L (98-108); Creatinine, Blood 0.85 mg/dL (0.60-1.20); Glomerular Filtration Rate >60 (60-); Glucose, Blood 110 mg/dL (70-99); Potassium, Blood 2.9 mmol/L (3.5-5.5); Sodium, Blood 137 mmol/L (136-145)
--- NOTE | 2018-12-23 06:07 | NUR ---
VSS, AFEBRILE, A/O, PT MEDICATED FOR PAIN PER ORDER, PT SLEPT WELL OVERNOC BUT DID NOT SLEEP FOR VERY LONG. IVF INFUSING PER ORDER, PT TOLERATING IV ABX W/OUT ADVERSE EFFECTS, PT WATCHES THE CLOCK AND REQUESTS HIS PRN PAIN MEDICATION EXACTLY ON THE MINUTE THAT IT BECOMES AVAILABLE. NO SIGNIFICANT CHANGES NOTED. PT IS WAITING TO BE TRANSPORTED TO [facility]. WILL REPORT TO ON-COMING SHIFT.
--- NOTE | 2018-12-23 16:43 | NUR ---
PT SENT OUT TO [facility] AT 1630. PT NOTIFIED FAMILY OF TRANSFER PRIOR TO TRANSPORT. REPORT CALLED UP TO [facility] AT 1625 TO RECIEVING NURSE FOR RM 30. PAPERS SENT WITH [facility] [employer] [facility]. LACTATED RINGER RUNNING AT 150ML/HR WITH PT. PT TREATED PER EMAR FOR NAUSEA AND PAIN PRIOR TO TRANSFER.
== END 2018-12-23 16:27 | disposition short-term general hospital (02) | DRG 871 ==
LOC: ER 07:06 → MEDS 10:32
PROVIDERS: Emergency Medicine; ADMIT Internal Medicine
DX: A41.9 Sepsis, unspecified organism (principal); K85.91 Acute pancreatitis with uninfected necrosis, unspecified; K86.1 Other chronic pancreatitis; E11.9 Type 2 diabetes mellitus without complications; Z79.4 Long term (current) use of insulin; F17.210 Nicotine dependence, cigarettes, uncomplicated; E87.6 Hypokalemia; D64.9 Anemia, unspecified; F31.9 Bipolar disorder, unspecified; F10.20 Alcohol dependence, uncomplicated
CPT/HCPCS: 36415; 74177; 80048; 80053; 82947; 83605; 83690; 83735; 84100; 84132; 85025; 85610; 93005; 93010; 96361-59; 96365-59; 96375-59; 96376-59; 99285-25; C1751; C9113; G0480; J0780; J1170; J1815; J2405; J2543; J3370; J3480; J7050; J7120; Q9967

== ENCOUNTER 2019-01-22 15:10 | Emergency (ER) | payer OTHER ==
[~2019-01-22] VITALS: Ht 175.3 cm; Wt 92.5 kg
[~2019-01-22 15:10] MED LIST changes: +BASAGLAR K100 UNIT/1 SC; +ELIQUIS5 MG PO; +GABA400 PO; +HYDMOR2 PO
[2019-01-22] MEDS ORDERED: CREON DR 24,001 EACH PO (15:29)
[2019-01-22] MEDS ORDERED: PANT40 PO (15:31)
[2019-01-22] MEDS ORDERED: HYDMOR4 PO (15:32)
== END 2019-01-22 15:40 | disposition home or self-care (01) ==
LOC: ER 15:10
DX: K85.90 Acute pancreatitis without necrosis or infection, unspecified (principal); Z76.0 Encounter for issue of repeat prescription; F31.9 Bipolar disorder, unspecified; F90.9 Attention-deficit hyperactivity disorder, unspecified type; E11.9 Type 2 diabetes mellitus without complications; F17.200 Nicotine dependence, unspecified, uncomplicated; Z88.6 Allergy status to analgesic agent; Z79.4 Long term (current) use of insulin
CPT/HCPCS: 99281

== ENCOUNTER 2019-01-27 11:46 | Emergency (ER) | payer OTHER ==
[~2019-01-27] VITALS: Ht 175.3 cm; Wt 90.7 kg
[~2019-01-27 11:46] MED LIST changes: +CREON DR 24,001 EACH PO; +HYDMOR4 PO
[2019-01-27] MEDS ORDERED: HYDMOR4 PO (12:24)
== END 2019-01-27 12:30 | disposition home or self-care (01) ==
LOC: ER 11:46
DX: Z76.0 Encounter for issue of repeat prescription (principal); K85.91 Acute pancreatitis with uninfected necrosis, unspecified; F17.200 Nicotine dependence, unspecified, uncomplicated; F31.9 Bipolar disorder, unspecified; E11.9 Type 2 diabetes mellitus without complications; Z88.5 Allergy status to narcotic agent; Z79.4 Long term (current) use of insulin; Z90.49 Acquired absence of other specified parts of digestive tract
CPT/HCPCS: 99281

== ENCOUNTER 2019-02-03 14:52 | Emergency (ER) | payer OTHER ==
[~2019-02-03] VITALS: Ht 175.3 cm; Wt 89.8 kg
[2019-02-03 15:48] LABS: BASOPHILS ABSOLUTE AUTO 0.02 K/mm3 (0.00-0.23); BASOPHILS PERCENT AUTO 0 % (0-2); EOSINOPHILS ABSOLUTE AUTO 0.07 K/mm3 (0.00-0.68); EOSINOPHILS PERCENT AUTO 1 % (0-6); Hematocrit 36.6 % (37.0-53.0); Hemoglobin 11.3 g/dL (13.5-17.5); IMMATURE GRAN ABSOLUTE AUTO 0.02 K/mm3 (0.00-0.10); IMMATURE GRAN PERCENT AUTO 0 % (0-1); LYMPHOCYTES ABSOLUTE AUTO 1.65 K/mm3 (0.84-5.20); LYMPHOCYTES PERCENT AUTO 22 % (21-46); MONOCYTES ABSOLUTE AUTO 0.34 K/mm3 (0.16-1.47); MONOCYTES PERCENT AUTO 5 % (4-13); Mean Corpuscular HGB 24.9 pg (26.0-34.0); Mean Corpuscular HGB Conc 30.9 g/dL (31.5-36.5); Mean Corpuscular Volume 81 fL (80-100); Mean Platelet Volume 9.6 fL (9.1-12.4); NEUTROPHILS ABSOLUTE AUTO 5.38 K/mm3 (1.96-9.15); NEUTROPHILS PERCENT AUTO 72 % (41-73); Platelet Count 359 K/mm3 (150-400); RDW Coefficient Variation 20.4 % (11.7-14.2); RDW Standard Deviation 60.5 fL (35.1-46.3); Red Blood Cell Count 4.53 M/mm3 (4.30-5.90); White Blood Cell Count 7.48 K/mm3 (4.00-11.30)
[2019-02-03 16:11] LABS: Alanine Aminotransfer (ALT/SGP 34 U/L (12-78); Albumin, Blood 3.5 g/dL (3.4-5.0); Albumin/Globulin Ratio 0.7 (0.8-1.8); Alk Phos 152 U/L (50-136); Anion Gap 8 mmol/L (6-16); Aspartate Aminotrans (AST/SGOT 41 U/L (12-37); Bilirubin, Total 0.5 mg/dL (0.1-1.0); Blood Urea Nitrogen 6 mg/dL (8-24); Bun/Creatinine Ratio 8.8 (12.0-20.0); CO2, Blood 26 mmol/L (21-32); Calcium, Blood 9.7 mg/dL (8.5-10.1); Chloride, Blood 105 mmol/L (98-108); Creatinine, Blood 0.69 mg/dL (0.60-1.20); Globulin, Blood 4.9 g/dL (2.2-4.0); Glomerular Filtration Rate >60 (60-); Glucose, Blood 129 mg/dL (70-99); Potassium, Blood 3.7 mmol/L (3.5-5.5); Sodium, Blood 139 mmol/L (136-145); Total Protein, Blood 8.4 g/dL (6.4-8.2)
[2019-02-03] MEDS ORDERED: HYDMOR4 PO (17:02)
[2019-02-03] MEDS ORDERED: ONDA4ODT MM (17:02)
== END 2019-02-03 18:22 | disposition home or self-care (01) ==
LOC: ER 14:52
PROVIDERS: Physician Assistant
DX: K52.9 Noninfective gastroenteritis and colitis, unspecified (principal); K85.90 Acute pancreatitis without necrosis or infection, unspecified; Z88.5 Allergy status to narcotic agent; Z79.4 Long term (current) use of insulin; Z79.899 Other long term (current) drug therapy; F31.9 Bipolar disorder, unspecified; F90.9 Attention-deficit hyperactivity disorder, unspecified type; F17.210 Nicotine dependence, cigarettes, uncomplicated
CPT/HCPCS: 36415; 74177; 80053; 83690; 85025; 96361-59; 96374-59; 96375-59; 96376-59; 99284-25; J1170; J2405; J7030; Q9967

== ENCOUNTER 2019-11-09 21:59 | Inpatient (IN) | payer OTHER ==
[~2019-11-09] VITALS: Ht 175.3 cm; Wt 95.8 kg
[~2019-11-09 21:59] MED LIST changes: +ONDA4ODT MM
[2019-11-10 00:10] LABS: BASOPHILS ABSOLUTE AUTO 0.02 K/mm3 (0.00-0.23); BASOPHILS PERCENT AUTO 0 % (0-2); EOSINOPHILS ABSOLUTE AUTO 0.01 K/mm3 (0.00-0.68); EOSINOPHILS PERCENT AUTO 0 % (0-6); Hematocrit 50.3 % (37.0-53.0); Hemoglobin 17.1 g/dL (13.5-17.5); IMMATURE GRAN ABSOLUTE AUTO 0.05 K/mm3 (0.00-0.10); IMMATURE GRAN PERCENT AUTO 0 % (0-1); LYMPHOCYTES ABSOLUTE AUTO 1.17 K/mm3 (0.84-5.20); LYMPHOCYTES PERCENT AUTO 8 % (21-46); MONOCYTES ABSOLUTE AUTO 0.73 K/mm3 (0.16-1.47); MONOCYTES PERCENT AUTO 5 % (4-13); Mean Corpuscular HGB 30.8 pg (26.0-34.0); Mean Corpuscular Volume 91 fL (80-100); Mean Platelet Volume 9.2 fL (9.1-12.4); NEUTROPHILS ABSOLUTE AUTO 12.37 K/mm3 (1.96-9.15); NEUTROPHILS PERCENT AUTO 86 % (41-73); Platelet Count 391 K/mm3 (150-400); RDW Coefficient Variation 12.7 % (11.7-14.2); RDW Standard Deviation 42.4 fL (35.1-46.3); Red Blood Cell Count 5.56 M/mm3 (4.30-5.90); White Blood Cell Count 14.35 K/mm3 (4.00-11.30)
[2019-11-10 00:28] LABS: Alanine Aminotransfer (ALT/SGP 28 U/L (12-78); Albumin, Blood 3.7 g/dL (3.4-5.0); Albumin/Globulin Ratio 0.8 (0.8-1.8); Alk Phos 157 U/L (50-136); Anion Gap 7 mmol/L (6-16); Aspartate Aminotrans (AST/SGOT 14 U/L (12-37); Bilirubin, Total 1.2 mg/dL (0.1-1.0); Blood Urea Nitrogen 13 mg/dL (8-24); Bun/Creatinine Ratio 19.1 (12.0-20.0); CO2, Blood 29 mmol/L (21-32); Calcium, Blood 9.6 mg/dL (8.5-10.1); Chloride, Blood 100 mmol/L (98-108); Creatinine, Blood 0.68 mg/dL (0.60-1.20); Globulin, Blood 4.7 g/dL (2.2-4.0); Glomerular Filtration Rate >60 (60-); Glucose, Blood 224 mg/dL (70-99); Sodium, Blood 136 mmol/L (136-145); Total Protein, Blood 8.4 g/dL (6.4-8.2)
[2019-11-10] MEDS ORDERED: KETO10 PO (02:00)
--- NOTE | 2019-11-10 04:29 | NUR ---
SUMMARY PT ARRIVED IN SOME DISCOMFORT. PT TX PER EMAR WITH RELIEF. PT HAS BEEN SLEEPING WELL W/ OUT COMPLAINT. CALL LIGHT IN REACH
[2019-11-10 05:10] LABS: Hematocrit 47.1 % (37.0-53.0); Hemoglobin 16.1 g/dL (13.5-17.5); Mean Corpuscular HGB Conc 34.2 g/dL (31.5-36.5); Mean Corpuscular Volume 91 fL (80-100); Platelet Count 331 K/mm3 (150-400); RDW Coefficient Variation 12.9 % (11.7-14.2); RDW Standard Deviation 42.9 fL (35.1-46.3); Red Blood Cell Count 5.19 M/mm3 (4.30-5.90); White Blood Cell Count 16.92 K/mm3 (4.00-11.30)
[2019-11-10 05:26] LABS: CHOL/HDL RATIO 3.2; Cholesterol 191 mg/dL (50-200); HDL Cholesterol 59 mg/dL (>39); Low Density Lipoprotein Chol 116 mg/dL (0-110); Triglycerides 79 mg/dL (30-140); Very Low Density Lipoprot Chol 15 mg/dL (6-28)
[2019-11-10 05:37] LABS: Alanine Aminotransfer (ALT/SGP 18 U/L (12-78); Albumin, Blood 3.3 g/dL (3.4-5.0); Albumin/Globulin Ratio 0.8 (0.8-1.8); Alk Phos 134 U/L (50-136); Anion Gap 9 mmol/L (6-16); Aspartate Aminotrans (AST/SGOT 11 U/L (12-37); Bilirubin, Total 1.1 mg/dL (0.1-1.0); Blood Urea Nitrogen 13 mg/dL (8-24); Bun/Creatinine Ratio 21.7 (12.0-20.0); CO2, Blood 27 mmol/L (21-32); Calcium, Blood 8.9 mg/dL (8.5-10.1); Chloride, Blood 103 mmol/L (98-108); Glomerular Filtration Rate >60 (60-); Glucose, Blood 202 mg/dL (70-99); Potassium, Blood 3.9 mmol/L (3.5-5.5); Sodium, Blood 139 mmol/L (136-145); Total Protein, Blood 7.3 g/dL (6.4-8.2)
--- NOTE | 2019-11-10 17:34 | NUR ---
PT HAS BEEN AOX4 AND COOPERATIVE OF CARE. PT STARTED CLEAR DIET AND HAS BEEN DRINKING SMALL AMOUNTS. PT CONTINUE TO HAVE ABDOMINAL PAIN AND NAUSEA TREATING PER EMAR. PT DOES ASK TO BE UNHOOKED FROM IV AND WILL WALK OUT FOR SHORT PERIOD TO SMOKE. PT KEEPING LIGHTS OFF AND ROOM DARK TRYING TO REST. WILL CONTINUE TO MONITOR.
--- NOTE | 2019-11-11 03:34 | NUR ---
SUMMARY PT CONTINUES TO HAVE ABD DISCOMFORT. PT HAS BEEN ABLE TO SLEEP OFF AND ON. PT DENIES ANY GAS OR BM. PT HAS GONE OUTSIDE TO SMOKE TWICE THIS SHIFT. PT DISCOMFORT TX PER EMAR WITH RELIEF. PT CURRENTLY SLEEPING AND IN NO DISTRESS. CALL LIGHT IN REACH.
[2019-11-11 05:05] LABS: BASOPHILS ABSOLUTE AUTO 0.02 K/mm3 (0.00-0.23); BASOPHILS PERCENT AUTO 0 % (0-2); EOSINOPHILS ABSOLUTE AUTO 0.12 K/mm3 (0.00-0.68); EOSINOPHILS PERCENT AUTO 1 % (0-6); Hematocrit 41.6 % (37.0-53.0); Hemoglobin 13.7 g/dL (13.5-17.5); IMMATURE GRAN ABSOLUTE AUTO 0.08 K/mm3 (0.00-0.10); IMMATURE GRAN PERCENT AUTO 1 % (0-1); LYMPHOCYTES ABSOLUTE AUTO 1.55 K/mm3 (0.84-5.20); LYMPHOCYTES PERCENT AUTO 10 % (21-46); MONOCYTES ABSOLUTE AUTO 0.94 K/mm3 (0.16-1.47); MONOCYTES PERCENT AUTO 6 % (4-13); Mean Corpuscular HGB 30.8 pg (26.0-34.0); Mean Corpuscular HGB Conc 32.9 g/dL (31.5-36.5); Mean Platelet Volume 9.3 fL (9.1-12.4); NEUTROPHILS ABSOLUTE AUTO 13.05 K/mm3 (1.96-9.15); NEUTROPHILS PERCENT AUTO 83 % (41-73); Platelet Count 255 K/mm3 (150-400); RDW Coefficient Variation 13.1 % (11.7-14.2); RDW Standard Deviation 45.1 fL (35.1-46.3); Red Blood Cell Count 4.45 M/mm3 (4.30-5.90); White Blood Cell Count 15.76 K/mm3 (4.00-11.30)
[2019-11-11 05:10] LABS: Mean Corpuscular Volume 94 fL (80-100)
[2019-11-11 05:24] LABS: Anion Gap 5 mmol/L (6-16); Blood Urea Nitrogen 12 mg/dL (8-24); CO2, Blood 29 mmol/L (21-32); Chloride, Blood 100 mmol/L (98-108); Creatinine, Blood 0.67 mg/dL (0.60-1.20); Glomerular Filtration Rate >60 (60-); Glucose, Blood 210 mg/dL (70-99); Magnesium, Blood 1.8 mg/dL (1.6-2.4); Sodium, Blood 134 mmol/L (136-145)
--- NOTE | 2019-11-11 12:48 | NUR ---
PAIN AND APPETITE: PATIENT HAS TOLERATED A REGULAR LUNCH UP UNTIL NOW WITHOUT INCREASE IN NAUSEA, CRAMPING, OR CHANGE IN ABDOMINAL PAIN/DISCOMFORT. PATIENT REPORTS THAT THE LACTULOSE SEEMS TO BE WORKING AND HE SHOULD HAVE A BOWEL MOVEMENT SOON. MEDICATED WITH IV DILAUDID FOR PAIN (NOTIFIED PHARMACY OF INABILITY TO SCAN BOTH VIALS OF DILAUDID - REPORTED IT WILL BE FIXED). PATIENT TOLERATED WITHOUT DIZZINESS OR DROWSINESS.
--- NOTE | 2019-11-11 18:31 | NUR ---
END OF SHIFT SUMMARY: PATIENT CONTINUES TO REPORTED ELEVATED PAIN IN ABDOMEN (03/04). PATIENT ALSO REPORTS CONSTIPATION. THIS MORNING HE DENIED FLATUS. DISCUSSED WITH DR. FLORES. NEW ORDERS FOR LACTULOSE. POST ADMINISTRATION, PATIENT REPORTED INCREASED FLATUS AND URGES TO DEFECATE. BY THE END OF THE SHIFT, PATIENT HAD STILL NOT HAD A BOWEL MOVEMENT. HE REPORTED FEELINGS OF GAS DISCOMFORT. DISCUSSED WITH DR. GILL. NEW ORDER FOR SIMETHICONE. MEDICATED WITH THIS MEDICATION AND PROVIDED WITH SOME PRUNE JUICE. PATIENT AMBULATES FREQUENTLY AND IS DRINKING FLUIDS. ASIDE FROM INCREASED GAS PAIN, PATIENT TOLERATING REGULAR DIET WELL. DENIES NAUSEA OR CHANGE TO CURRENT ABDOMINAL PAIN. PATIENT HAS AN APPETITE FOR SOLID FOOD. PATIENT CONTINUES TO REQUIRE PRN PAIN MEDICATIONS TO KEEP PAIN UNDER CONTROL. PATIENT REPORTS THAT THE K-PAD ON THE ABDOMEN HAS HELPED WITH THE PAIN.
--- NOTE | 2019-11-12 04:25 | NUR ---
SHIFT SUMMARY ASSUMED CARE OF PT AT 2200, PT IS A/O X4, DENIES N/T IN EXTREMITIES. PT IS TRANSFER FROM THE BACK [facility]. PT DENIES CP/SOB AT THIS TIME. PT IS PAINFUL, PAIN 7/10, EVEN AFTER MEDICATED. PT TOOK A SHOWER. PT IS INDEPENDENT IN ROOM. NO ACUTE EVENTS DURING THE NIGHT. PT WENT OUT TO SMOKE TWICE TONIGHT. PT HOPES TO GO HOMME DESPITE NOT BEING ABLE TO HAVE A BOWEL MOVEMENT. CALL LIGHT IN REACH, BED IN LOWEST POSTION, WILL CONTINUE TO MONITOR UNTIL DAYSHIFT NURSE ARRIVES.
[2019-11-12] MEDS ORDERED: MIRALAX17 GM PO (13:45)
[2019-11-12] MEDS ORDERED: PERCOCET 10-321 EACH PO (13:46)
--- NOTE | 2019-11-12 14:14 | NUR ---
DISCHARGE PT STATE ABLE TO TOLERATE REG DIET HOWEVER EATING CAUTIOUSLY. STATE CONTINUING MID-L ABD PAIN. GAVE IV DILAUDID ALTERNATED WITH PERCOCET THIS AM FOR PAIN CONTROL/RELIEF. PT STATE HOPEFUL FOR D/C HOME TODAY. DR WEIR IN TO ASSESS HIM, REVIEW LABS, STATE OK FOR D/C HOME TODAY, PROVIDE ORDERS. FAXED TO [facility]/REQUEST. F/U REFERRAL PLACED TO DR DENIS. D/C INSTRUCT REVIEWED. IV D/C INTACT. PERCOCET GIVEN PRIOR TO D/C. HARD COPY SCRIPT PROVIDED TO PT. FAMILY MEMBER IN FOR TRANSPORT HOME. PT DECLINED W/C ESCORT. HE IS PLEASANT/APPRECIATIVE.
== END 2019-11-12 14:21 | disposition home or self-care (01) | DRG 440 ==
LOC: ER 21:59 → MEDS 11-10 02:31
PROVIDERS: Hospitalist; Physician Assistant; ADMIT Internal Medicine
DX: K85.90 Acute pancreatitis without necrosis or infection, unspecified (principal); F17.210 Nicotine dependence, cigarettes, uncomplicated; E11.69 Type 2 diabetes mellitus with other specified complication; F31.9 Bipolar disorder, unspecified; F10.20 Alcohol dependence, uncomplicated; K59.00 Constipation, unspecified; E11.65 Type 2 diabetes mellitus with hyperglycemia; Z68.32 Body mass index [BMI] 32.0-32.9, adult
CPT/HCPCS: 36415; 76705; 80048; 80053; 80061; 82947; 83690; 83735; 85025; 85027; 90686; 96374; 96375; 99284-25; A9270-GY; J1170; J1650; J2405; J3010; J7030

== ENCOUNTER 2020-01-22 06:03 | Inpatient (IN) | payer OTHER ==
[~2020-01-22] VITALS: Ht 175.3 cm; Wt 99.0 kg
[~2020-01-22 06:03] MED LIST changes: +MIRALAX17 GM PO; +PERCOCET 10-321 EACH PO
[2020-01-22 06:49] LABS: BASOPHILS ABSOLUTE AUTO 0.02 K/mm3 (0.00-0.23); BASOPHILS PERCENT AUTO 0 % (0-2); EOSINOPHILS ABSOLUTE AUTO 0.04 K/mm3 (0.00-0.68); EOSINOPHILS PERCENT AUTO 0 % (0-6); Hematocrit 47.7 % (37.0-53.0); Hemoglobin 16.8 g/dL (13.5-17.5); IMMATURE GRAN ABSOLUTE AUTO 0.06 K/mm3 (0.00-0.10); IMMATURE GRAN PERCENT AUTO 0 % (0-1); LYMPHOCYTES ABSOLUTE AUTO 1.84 K/mm3 (0.84-5.20); LYMPHOCYTES PERCENT AUTO 13 % (21-46); MONOCYTES ABSOLUTE AUTO 0.98 K/mm3 (0.16-1.47); MONOCYTES PERCENT AUTO 7 % (4-13); Mean Corpuscular HGB 30.9 pg (26.0-34.0); Mean Corpuscular HGB Conc 35.2 g/dL (31.5-36.5); Mean Corpuscular Volume 88 fL (80-100); Mean Platelet Volume 8.8 fL (9.1-12.4); NEUTROPHILS PERCENT AUTO 80 % (41-73); Platelet Count 368 K/mm3 (150-400); RDW Coefficient Variation 14.4 % (11.7-14.2); RDW Standard Deviation 46.1 fL (35.1-46.3); Red Blood Cell Count 5.44 M/mm3 (4.30-5.90); White Blood Cell Count 14.74 K/mm3 (4.00-11.30)
[2020-01-22 07:05] LABS: Alanine Aminotransfer (ALT/SGP 27 U/L (12-78); Albumin/Globulin Ratio 0.8 (0.8-1.8); Alk Phos 193 U/L (50-136); Anion Gap 14 mmol/L (6-16); Aspartate Aminotrans (AST/SGOT 23 U/L (12-37); Bilirubin, Total 1.7 mg/dL (0.1-1.0); Blood Urea Nitrogen 19 mg/dL (8-24); Bun/Creatinine Ratio 28.8 (12.0-20.0); CO2, Blood 28 mmol/L (21-32); Chloride, Blood 96 mmol/L (98-108); Creatinine, Blood 0.66 mg/dL (0.60-1.20); Glomerular Filtration Rate >60 (60-); Glucose, Blood 235 mg/dL (70-99); Potassium, Blood 3.4 mmol/L (3.5-5.5); Sodium, Blood 138 mmol/L (136-145)
--- NOTE | 2020-01-22 19:40 | NUR ---
SHIFT SUMMARY JES CAME UP FROM ER AROUND 1030 THIS MORNING. HAS PAIN AND NAUSEA, GIVEN IV DILAUDID AND ZOFRAN WHICH HELPED. NPO. MIVF, PT CALLS TO BE DISCONNECTED TO GO OUTSIDE BRIEFLY. 1300--PT CHECKED HIS OWN CBG LEVEL AND GAVE HIMSELF 5 UNITS OF REGULAR INSULIN WITHOUT STAFF KNOWLEDGE. DR TROTTER AWARE, PT EDUCATED ON NEED FOR US TO DO THIS OURSELVES, HE IS AGREEABLE. 4PM CBG CHECK WNL. WILL RECHECK Q6.
[2020-01-23 04:29] LABS: BASOPHILS ABSOLUTE AUTO 0.02 K/mm3 (0.00-0.23); BASOPHILS PERCENT AUTO 0 % (0-2); EOSINOPHILS ABSOLUTE AUTO 0.26 K/mm3 (0.00-0.68); EOSINOPHILS PERCENT AUTO 2 % (0-6); Hematocrit 38.4 % (37.0-53.0); Hemoglobin 12.8 g/dL (13.5-17.5); IMMATURE GRAN ABSOLUTE AUTO 0.04 K/mm3 (0.00-0.10); IMMATURE GRAN PERCENT AUTO 0 % (0-1); LYMPHOCYTES ABSOLUTE AUTO 1.62 K/mm3 (0.84-5.20); LYMPHOCYTES PERCENT AUTO 15 % (21-46); MONOCYTES ABSOLUTE AUTO 0.76 K/mm3 (0.16-1.47); MONOCYTES PERCENT AUTO 7 % (4-13); Mean Corpuscular HGB 30.9 pg (26.0-34.0); Mean Corpuscular HGB Conc 33.3 g/dL (31.5-36.5); Mean Platelet Volume 8.9 fL (9.1-12.4); NEUTROPHILS ABSOLUTE AUTO 8.33 K/mm3 (1.96-9.15); NEUTROPHILS PERCENT AUTO 75 % (41-73); Platelet Count 238 K/mm3 (150-400); RDW Coefficient Variation 14.4 % (11.7-14.2); Red Blood Cell Count 4.14 M/mm3 (4.30-5.90); White Blood Cell Count 11.03 K/mm3 (4.00-11.30)
[2020-01-23 04:31] LABS: Mean Corpuscular Volume 93 fL (80-100)
[2020-01-23 04:50] LABS: Anion Gap 8 mmol/L (6-16); Blood Urea Nitrogen 17 mg/dL (8-24); Bun/Creatinine Ratio 24.1 (12.0-20.0); CO2, Blood 29 mmol/L (21-32); Calcium, Blood 8.5 mg/dL (8.5-10.1); Chloride, Blood 97 mmol/L (98-108); Creatinine, Blood 0.71 mg/dL (0.60-1.20); Glomerular Filtration Rate >60 (60-); Glucose, Blood 143 mg/dL (70-99); Potassium, Blood 3.3 mmol/L (3.5-5.5); Sodium, Blood 134 mmol/L (136-145)
--- NOTE | 2020-01-23 06:36 | NUR ---
SHIFT SUMMARY AA0X4, VSS. PT IND IN ROOM. HAS AMBULATED IN THE HALLWAYS. EDUCATED PT ON FACT THAT HE CANNOT GO OUTSIDE. PT MEDICATED FOR PAIN PER EMAR. STATES RELIEF. PT UP TO SHOWER EARLY IN SHIFT. PT REPORTS PASSING SOME GAS AFTER AMBULATING. PT REPORTS FEELING MORE DISTENDED TOWARDS END OF SHIFT. SOME NAUSEA REPORTED DURING SHIFT. MEDICATED WITH ZOFRAN.
--- NOTE | 2020-01-23 17:28 | NUR ---
SHIFT SUMMARY JES STILL WAS PAINFUL AND NAUSEOUS TODAY, BUT REQUIRING LESS IV DILAUDID THAN YESTERDAY. ADVANCED TO LIQUID DIET, TOLERATING WELL. INFORMED PT THAT HE ISN'T ALLOWED TO GO OUTSIDE. HE STILL WANTS UNHOOKED TO GO ON [place]AL[place]. REQUIRED INSULIN ONCE THIS SHIFT.
--- NOTE | 2020-01-24 00:05 | NUR ---
2100 PT INDEPENDENT IN ROOM. PT TOLD ME THAT HE WAS GOING TO WALK AROUND THE HALLWAY. 2129 PT NO WHERE TO BE SEEN ON THE FLOOR. SECURITY WAS CALLED WHO STATED IT MIGHT HAVE BEEN HIM THAT WENT OUT TO HIS CAR. PT CAME BACK TO FLOOR AROUND 2144. PT STATED HE HAS GONE DOWNSTAIRS BUT NOT OUT TO HIS CAR. PT WAS EDUCATED THAT HE CANNOT GO OFF THE FLOOR AND IF HE DOES AGAIN, HE WOULD HAVE TO BE CONSIDERED DISCHARGED. I WAS TOLD BY STAFF PT WAS TOLD NOT TO GO OFF OF THE FLOOR YESTERDAY. HOWEVER, PT STATED HE WAS NEVER TOLD BY ANYONE THAT HE CANNOT GO OFF THE FLOOR. WILL CONTINUE TO MONITOR.
--- NOTE | 2020-01-24 05:23 | NUR ---
SECOND HAND SUMMARY PT A/O X4. INDEPENDENT IN ROOM. PT HAS BEEN RATING ABD PAIN AVERAGING 8-10. MEDICATED FOR PAIN FREQUENTLY TONIGHT. VSS. TOLERATING FUILL LIQUIDS WELL. DENIES CHEST PAIN, SOB, AND DIZZINIESS. PT FELT NAUSEA ONCE THIS SHIFT. MEDICATED WITH ZOFRAN. PT PREFERS TO HAVE BED IN A HIGHER POSITION.
[2020-01-24] MEDS ORDERED: Percocet 5-3251 EACH PO (11:16)
--- NOTE | 2020-01-24 15:02 | NUR ---
PATIENT DISCHARGED TO HOME AT 1120. IV REMOVED EARLIER TODAY BY PATIENT. HAS ALL BELONGINGS. PATIENT GIVEN PAPER RX FOR PERCOCET.
== END 2020-01-24 11:23 | disposition home or self-care (01) | DRG 440 ==
LOC: ER 06:03 → MEDS 06:04 → ER 09:28 → MEDS 10:05 → ENPENDDIS 01-24 09:00 → MEDS 01-24 11:23
PROVIDERS: Emergency Medicine; ADMIT Internal Medicine
DX: K85.90 Acute pancreatitis without necrosis or infection, unspecified (principal); F17.210 Nicotine dependence, cigarettes, uncomplicated; F31.9 Bipolar disorder, unspecified; E11.9 Type 2 diabetes mellitus without complications; Z79.4 Long term (current) use of insulin; F90.9 Attention-deficit hyperactivity disorder, unspecified type
CPT/HCPCS: 36415; 80048; 80053; 82947; 83690; 85025; 96361; 96374; 96375; 99284-25; C9113; G0480; J1170; J1650; J2405; J3480; J7030

== ENCOUNTER 2020-04-19 11:12 | Emergency (ER) | payer OTHER ==
[~2020-04-19] VITALS: Ht 175.3 cm; Wt 81.7 kg
[~2020-04-19 11:12] MED LIST changes: +ALMACONE SUSPE355 ML PO; +AMOCLA875 PO; +AMOX875 PO; +CREON DR 36,001 EACH PO; +DOCU100 PO; +Gas-X125 MG PO; +LACT PO; +OXYC10TA19 PO; +Omeprazole20 M1 PO; +Percocet 5-3251 EACH PO; +SENN187 PO
[2020-04-19 11:45] LABS: BASOPHILS ABSOLUTE AUTO 0.03 K/mm3 (0.00-0.23); BASOPHILS PERCENT AUTO 0 % (0-2); EOSINOPHILS ABSOLUTE AUTO 0.13 K/mm3 (0.00-0.68); EOSINOPHILS PERCENT AUTO 1 % (0-6); Hematocrit 49.8 % (37.0-53.0); Hemoglobin 17.1 g/dL (13.5-17.5); IMMATURE GRAN ABSOLUTE AUTO 0.03 K/mm3 (0.00-0.10); IMMATURE GRAN PERCENT AUTO 0 % (0-1); LYMPHOCYTES PERCENT AUTO 25 % (21-46); MONOCYTES ABSOLUTE AUTO 0.78 K/mm3 (0.16-1.47); MONOCYTES PERCENT AUTO 6 % (4-13); Mean Corpuscular HGB 29.3 pg (26.0-34.0); Mean Corpuscular HGB Conc 34.3 g/dL (31.5-36.5); Mean Corpuscular Volume 85 fL (80-100); Mean Platelet Volume 9.5 fL (9.1-12.4); NEUTROPHILS ABSOLUTE AUTO 8.85 K/mm3 (1.96-9.15); NEUTROPHILS PERCENT AUTO 68 % (41-73); Platelet Count 507 K/mm3 (150-400); RDW Coefficient Variation 14.6 % (11.7-14.2); RDW Standard Deviation 45.5 fL (35.1-46.3); Red Blood Cell Count 5.84 M/mm3 (4.30-5.90); White Blood Cell Count 13.02 K/mm3 (4.00-11.30)
[2020-04-19 11:54] LABS: Alanine Aminotransfer (ALT/SGP 21 U/L (12-78); Albumin, Blood 3.9 g/dL (3.4-5.0); Albumin/Globulin Ratio 0.8 (0.8-1.8); Alk Phos 165 U/L (50-136); Anion Gap 10 mmol/L (6-16); Aspartate Aminotrans (AST/SGOT 18 U/L (12-37); Blood Urea Nitrogen 14 mg/dL (8-24); Bun/Creatinine Ratio 16.4 (12.0-20.0); CO2, Blood 31 mmol/L (21-32); Calcium, Blood 10.4 mg/dL (8.5-10.1); Chloride, Blood 94 mmol/L (98-108); Creatinine, Blood 0.85 mg/dL (0.60-1.20); Globulin, Blood 5.1 g/dL (2.2-4.0); Glomerular Filtration Rate >60 (60-); Glucose, Blood 330 mg/dL (70-99); Potassium, Blood 3.3 mmol/L (3.5-5.5); Sodium, Blood 135 mmol/L (136-145)
[2020-04-19] MEDS ORDERED: Norco 5-325 Ta1 EACH PO (13:36)
[2020-04-19] MEDS ORDERED: ONDA4ODT MM (13:36)
[2020-04-19] MEDS ORDERED: Percocet 5-3251 EACH PO (15:03)
== END 2020-04-19 15:04 | disposition home or self-care (01) ==
LOC: ER 11:12
PROVIDERS: Physician Assistant
DX: R10.13 Epigastric pain (principal); R11.2 Nausea with vomiting, unspecified; R19.7 Diarrhea, unspecified; F90.9 Attention-deficit hyperactivity disorder, unspecified type; F31.9 Bipolar disorder, unspecified; F17.210 Nicotine dependence, cigarettes, uncomplicated; Z88.5 Allergy status to narcotic agent; Z79.4 Long term (current) use of insulin; Z79.899 Other long term (current) drug therapy
CPT/HCPCS: 36415; 80053; 83690; 85025; 96361; 96374; 96375; 96376; 99284-25; J1170; J1885; J2405; J7030

== ENCOUNTER 2020-04-21 11:59 | Inpatient (IN) | payer OTHER ==
[~2020-04-21] VITALS: Ht 175.3 cm; Wt 78.9 kg
[~2020-04-21 11:59] MED LIST changes: +Norco 5-325 Ta1 EACH PO
[2020-04-21 12:41] LABS: BASOPHILS ABSOLUTE AUTO 0.03 K/mm3 (0.00-0.23); BASOPHILS PERCENT AUTO 0 % (0-2); EOSINOPHILS ABSOLUTE AUTO 0.11 K/mm3 (0.00-0.68); EOSINOPHILS PERCENT AUTO 1 % (0-6); Hematocrit 47.8 % (37.0-53.0); Hemoglobin 16.1 g/dL (13.5-17.5); IMMATURE GRAN ABSOLUTE AUTO 0.03 K/mm3 (0.00-0.10); IMMATURE GRAN PERCENT AUTO 0 % (0-1); LYMPHOCYTES ABSOLUTE AUTO 2.91 K/mm3 (0.84-5.20); LYMPHOCYTES PERCENT AUTO 22 % (21-46); MONOCYTES ABSOLUTE AUTO 0.85 K/mm3 (0.16-1.47); MONOCYTES PERCENT AUTO 7 % (4-13); Mean Corpuscular HGB 28.9 pg (26.0-34.0); Mean Corpuscular HGB Conc 33.7 g/dL (31.5-36.5); Mean Corpuscular Volume 86 fL (80-100); Mean Platelet Volume 9.9 fL (9.1-12.4); NEUTROPHILS ABSOLUTE AUTO 9.11 K/mm3 (1.96-9.15); NEUTROPHILS PERCENT AUTO 70 % (41-73); Platelet Count 396 K/mm3 (150-400); RDW Coefficient Variation 14.5 % (11.7-14.2); RDW Standard Deviation 45.6 fL (35.1-46.3); Red Blood Cell Count 5.57 M/mm3 (4.30-5.90); White Blood Cell Count 13.04 K/mm3 (4.00-11.30)
[2020-04-21 13:00] LABS: Alanine Aminotransfer (ALT/SGP 18 U/L (12-78); Albumin, Blood 3.7 g/dL (3.4-5.0); Albumin/Globulin Ratio 0.7 (0.8-1.8); Alk Phos 167 U/L (50-136); Anion Gap 8 mmol/L (6-16); Aspartate Aminotrans (AST/SGOT 10 U/L (12-37); Bilirubin, Total 1.5 mg/dL (0.1-1.0); Blood Urea Nitrogen 16 mg/dL (8-24); CO2, Blood 32 mmol/L (21-32); Calcium, Blood 10.7 mg/dL (8.5-10.1); Chloride, Blood 91 mmol/L (98-108); Glomerular Filtration Rate >60 (60-); Glucose, Blood 340 mg/dL (70-99); Potassium, Blood 3.4 mmol/L (3.5-5.5); Sodium, Blood 131 mmol/L (136-145); Total Protein, Blood 8.7 g/dL (6.4-8.2)
[2020-04-21] MEDS ORDERED: HUMALOG KW100 UNIT/1 SC (15:28)
[2020-04-21] MEDS ORDERED: LANTUS SOL100 UNIT/1 SC (15:28)
--- NOTE | 2020-04-21 17:34 | NUR ---
PT ARRIVED TO FLOOR AT 1655. PT AOX4 AND COOPERATIVE OF CARE INDEPENDENT IN ROOM. PT STILL HAVING TROUBLE WTIH STOMACH PAIN AND RATED IT AN 8. TREATED PER EMAR. PT GIVEN CALL LIGHT AND BED IN LOWEST POSITION. WILL CONTINUE TO MONITOR.
--- NOTE | 2020-04-22 04:26 | NUR ---
SHIFT SUMMARY PATIENT REPORTED ABDOMINAL PAIN X FOUR. IV FENTANYL 50 MCG Q2 GIVEN PER EMAR. IV PHENERGAN GIVEN X ONE FOR NAUSEA. PIV INFILTRATED AND REPLACED TO LFA. CLINIMIX INFUSING AT 75mL/HR. NPO. AXOX 4 AND INDEPENDENT. WALKED HALLS X ONE. CBG Q6 AND LAST CBG 294. SOLAR ENERGY ENGINEER REPORTS NSR 60. VSS/AFEBRILE. COOPERATIVE WITH CARE. CALL LIGHT IN REACH. BED IN LOWEST POSITION. WILL CONTINUE TO MONITOR UNTIL DAY SHIFT NURSE ASSUMES CARE.
[2020-04-22 05:07] LABS: BASOPHILS ABSOLUTE AUTO 0.03 K/mm3 (0.00-0.23); BASOPHILS PERCENT AUTO 0 % (0-2); EOSINOPHILS ABSOLUTE AUTO 0.16 K/mm3 (0.00-0.68); EOSINOPHILS PERCENT AUTO 2 % (0-6); Hematocrit 44.5 % (37.0-53.0); Hemoglobin 14.8 g/dL (13.5-17.5); IMMATURE GRAN ABSOLUTE AUTO 0.01 K/mm3 (0.00-0.10); IMMATURE GRAN PERCENT AUTO 0 % (0-1); LYMPHOCYTES ABSOLUTE AUTO 2.18 K/mm3 (0.84-5.20); LYMPHOCYTES PERCENT AUTO 24 % (21-46); MONOCYTES ABSOLUTE AUTO 0.66 K/mm3 (0.16-1.47); MONOCYTES PERCENT AUTO 7 % (4-13); Mean Corpuscular HGB 29.2 pg (26.0-34.0); Mean Corpuscular HGB Conc 33.3 g/dL (31.5-36.5); Mean Corpuscular Volume 88 fL (80-100); NEUTROPHILS ABSOLUTE AUTO 6.25 K/mm3 (1.96-9.15); NEUTROPHILS PERCENT AUTO 67 % (41-73); Platelet Count 285 K/mm3 (150-400); RDW Coefficient Variation 14.6 % (11.7-14.2); RDW Standard Deviation 46.2 fL (35.1-46.3); Red Blood Cell Count 5.07 M/mm3 (4.30-5.90); White Blood Cell Count 9.29 K/mm3 (4.00-11.30)
[2020-04-22 05:30] LABS: International Normalized Ratio 1.07; Prothrombin Time Results 11.4 Sec (9.7-11.5)
[2020-04-22 05:38] LABS: Alanine Aminotransfer (ALT/SGP 13 U/L (12-78); Albumin, Blood 3.3 g/dL (3.4-5.0); Albumin/Globulin Ratio 0.7 (0.8-1.8); Alk Phos 136 U/L (50-136); Anion Gap 8 mmol/L (6-16); Aspartate Aminotrans (AST/SGOT 10 U/L (12-37); Bilirubin, Total 1.1 mg/dL (0.1-1.0); Blood Urea Nitrogen 17 mg/dL (8-24); Bun/Creatinine Ratio 23.8 (12.0-20.0); CO2, Blood 32 mmol/L (21-32); Calcium, Blood 9.8 mg/dL (8.5-10.1); Chloride, Blood 92 mmol/L (98-108); Creatinine, Blood 0.72 mg/dL (0.60-1.20); Globulin, Blood 4.6 g/dL (2.2-4.0); Glomerular Filtration Rate >60 (60-); Glucose, Blood 312 mg/dL (70-99); Potassium, Blood 3.6 mmol/L (3.5-5.5); Sodium, Blood 132 mmol/L (136-145); Total Protein, Blood 7.9 g/dL (6.4-8.2)
--- NOTE | 2020-04-22 16:43 | NUR ---
SHIFT SUMMARY- PT IS A/O, PLESANT AND COOPERATIVE. HE IS RECIEVING IV CLINAMIX. HIS ABDOMEN IS PAINFUL AND HE IS RECIEVING IV PAIN MEDICATION PRN. HE IS AMBULATING. DIET WAS ADVANCED TO CLEAR LIQUID.
--- NOTE | 2020-04-23 03:19 | NUR ---
SHIFT SUMMARY PT CONTINUES TO VOICE SEVERE ABD PAIN WITH PANCREATITIS. RECEIVEING DILAUDID 1 MG IV ABOUT EVERY 2 HRS. CLINIMIX CONTINUES TO INFUSE AT 75 ML/HR FOR NUTRITION. ALERT AND ORIENTED. UP AD MAYDA. USING CALL LIGHT NEEDS ARISE. WILL CONTINUE TO MONITOR
[2020-04-23 06:04] LABS: BASOPHILS ABSOLUTE AUTO 0.02 K/mm3 (0.00-0.23); BASOPHILS PERCENT AUTO 0 % (0-2); EOSINOPHILS ABSOLUTE AUTO 0.27 K/mm3 (0.00-0.68); EOSINOPHILS PERCENT AUTO 4 % (0-6); Hematocrit 40.7 % (37.0-53.0); Hemoglobin 13.6 g/dL (13.5-17.5); IMMATURE GRAN ABSOLUTE AUTO 0.02 K/mm3 (0.00-0.10); IMMATURE GRAN PERCENT AUTO 0 % (0-1); LYMPHOCYTES PERCENT AUTO 30 % (21-46); MONOCYTES PERCENT AUTO 7 % (4-13); Mean Corpuscular HGB 28.9 pg (26.0-34.0); Mean Corpuscular HGB Conc 33.4 g/dL (31.5-36.5); Mean Corpuscular Volume 86 fL (80-100); Mean Platelet Volume 9.9 fL (9.1-12.4); NEUTROPHILS PERCENT AUTO 59 % (41-73); Platelet Count 270 K/mm3 (150-400); RDW Coefficient Variation 14.8 % (11.7-14.2); RDW Standard Deviation 47.2 fL (35.1-46.3); Red Blood Cell Count 4.71 M/mm3 (4.30-5.90); White Blood Cell Count 7.11 K/mm3 (4.00-11.30)
[2020-04-23 06:14] LABS: Albumin, Blood 3.2 g/dL (3.4-5.0); Anion Gap 8 mmol/L (6-16); Blood Urea Nitrogen 21 mg/dL (8-24); Bun/Creatinine Ratio 39.6 (12.0-20.0); CO2, Blood 31 mmol/L (21-32); Calcium, Blood 9.5 mg/dL (8.5-10.1); Chloride, Blood 89 mmol/L (98-108); Creatinine, Blood 0.53 mg/dL (0.60-1.20); Glomerular Filtration Rate >60 (60-); Glucose, Blood 287 mg/dL (70-99); Phosphorus, Blood 3.8 mg/dL (2.5-4.9); Potassium, Blood 3.2 mmol/L (3.5-5.5); Sodium, Blood 128 mmol/L (136-145)
--- NOTE | 2020-04-23 17:26 | NUR ---
PT IS A/OX3, PLEASANT AND COOPERATIVE, THE PT IS UP IND IN HIS ROOM, APPEARS TO BE BREATHING EASILY ON RA, THE PT CONTINUES TO EAT SLOWLY SMALL BITES AND SIPS, CONTINUES TO REPORT PAIN AND NAUSEA, PT WAS MEDICATED FOR PAIN AND NAUSEA T/O THE DAY, CALL LIGHT IN REACH, AT TIMES TODAY THE PT HAS BEEN OUTSIDE
--- NOTE | 2020-04-23 22:12 | NUR ---
PT CONTINUES TO VOICE ABD PAIN DUE TO PANCREATITIS. SEE MAR FOR DETAILS OF MEDICATIONS. IV CLINIMIX DC'D. TOLERATING SMALL AMTS OF LIQUIDS. INSULIN ORDERS CHANGED TO ADDRESS CURRENT DIETARY NEEDS PER MD ORDERS.
--- NOTE | 2020-04-24 04:27 | NUR ---
SHIFT SUMMARY PT CONTINUES TO COMPLAIN OF SEVERE ABD PAIN, BETWEEN 9 TO 10 OUT OF 10 EACHTIME. RECEIVING DILAUDID 1 MG IV APPROX EVERY 2 HRS THIS SHIFT. TOLERATING PO LIQUIDS WITH SOME DIFFICULTY. APPARENT SLEEP IS OF SHORT DURATION WHEN OBSERVED. CALL LIGHT IN REACH.
[2020-04-24 05:30] LABS: Albumin, Blood 3.2 g/dL (3.4-5.0); Anion Gap 6 mmol/L (6-16); Blood Urea Nitrogen 15 mg/dL (8-24); Bun/Creatinine Ratio 24.2 (12.0-20.0); CO2, Blood 35 mmol/L (21-32); Calcium, Blood 9.9 mg/dL (8.5-10.1); Chloride, Blood 90 mmol/L (98-108); Creatinine, Blood 0.62 mg/dL (0.60-1.20); Glomerular Filtration Rate >60 (60-); Glucose, Blood 219 mg/dL (70-99); Phosphorus, Blood 3.9 mg/dL (2.5-4.9); Sodium, Blood 131 mmol/L (136-145)
--- NOTE | 2020-04-24 17:11 | NUR ---
SHIFT SUMMARY PATIENT ALERT AND ORIENTED THIS SHIFT. PATIENT INDEPENDENT IN THE ROOM. PATIENT REMAINS EXTREMELY PAINFUL IN HIS ABDOMEN DUE TO HIS PANCREATITIS. PATIENT MEDICATED THROUGHOUT THIS SHIFT WITH IV DILAUDID, PER EMAR. PATIENT STATES TEMPARARY REDUCTION OF PAIN WITH MEDICATION. PATIENT HAS BEEN ATTEMPTING A CLEAR LIQUID DIET THIS SHIFT, DRINKING SMALL AMOUNTS. PATIENT AMBULATED OUT OF THE ROOM 2 TIMES THIS SHIFT. PATIENT CURRENTLY SITTING UP IN BED WATCHING TELEVISION.
--- NOTE | 2020-04-24 22:29 | NUR ---
HAS BEEN AWAKE AND AMBULATING ABOUT HALL EAROIER AFTER HE TOOK A SHOWER. ALERT AND ORIENTED. RECEIVED BOTH ANTIEMETIC AND ANALGESIC EARLIER - SEE MAR FOR DETAILS. CALL LIGHT IN REACH
--- NOTE | 2020-04-25 03:25 | NUR ---
SHIFT SUMMARY ABD PAIN CONTINUES, DILAUDID IV NOW AT 1.5 MG (INCREASED FROM YESTERDAY OF 1 MG) ABOUT EVERY 2 HRS. SOME N/V AND ANTIEMETICS ADMINISTERED - SEE MAR FOR DETAILS RE MEDS. IV SITE CHANGED TO RIGHT SHOULDER. CURRENTLY RESTING QUIETLY. CALL LIGHT IN REACH
[2020-04-25 05:50] LABS: Albumin, Blood 3.7 g/dL (3.4-5.0); Anion Gap 8 mmol/L (6-16); Blood Urea Nitrogen 14 mg/dL (8-24); Bun/Creatinine Ratio 19.3 (12.0-20.0); CO2, Blood 34 mmol/L (21-32); Calcium, Blood 9.9 mg/dL (8.5-10.1); Chloride, Blood 88 mmol/L (98-108); Creatinine, Blood 0.73 mg/dL (0.60-1.20); Glomerular Filtration Rate >60 (60-); Glucose, Blood 182 mg/dL (70-99); Phosphorus, Blood 4.6 mg/dL (2.5-4.9); Potassium, Blood 2.7 mmol/L (3.5-5.5); Sodium, Blood 130 mmol/L (136-145)
[2020-04-25 15:46] LABS: Anion Gap 9 mmol/L (6-16); Blood Urea Nitrogen 12 mg/dL (8-24); CO2, Blood 30 mmol/L (21-32); Calcium, Blood 9.8 mg/dL (8.5-10.1); Chloride, Blood 92 mmol/L (98-108); Creatinine, Blood 0.67 mg/dL (0.60-1.20); Glomerular Filtration Rate >60 (60-); Glucose, Blood 178 mg/dL (70-99); Potassium, Blood 3.3 mmol/L (3.5-5.5); Sodium, Blood 131 mmol/L (136-145)
--- NOTE | 2020-04-25 17:34 | NUR ---
SHIFT SUMMARY PATIENT ALERT AND ORIENTED THROUGHOUT THIS SHIFT. PATIENT INDEPENDENT IN THE ROOM. PATIENT WALKS INDEPENDENTLY IN THE HALLS. PATIENT REMAINS PAINFUL, RECEIVING IV DILAUDID Q2 PRN. PATIENT REMAINS ON CLEAR LIQUID DIET. PATIENT STATED DESIRE TO BE ADVANCED TO FULL LIQUID DIET, THEN HAD 1 EPISODE OF EMISIS THIS AFTERNOON AND RETRACTED THIS REQUEST. PATIENT CURRENTLY SITTING UP IN BED WATCHING TELEVISION.
--- NOTE | 2020-04-26 05:42 | NUR ---
39 year old MAle with chronic pancreatitis continues to complain of pain up to 06/04 & request dilaudid 1.5 mg IV Q 2 hours frequently. He leaves the floor multiple times in 12 hour shift & takes tele monitor off several times. Tolerating diet & activity at 90% clear liquid diet. High narcotic tolerance. PT had poor venous ascess rt shoulder IV leaking this AM after showering last night. Asked photographic coloristDULCE Serna to attempt IV asscess due to PT required multiple attempts yesterday to get IV assess. PT sleeping soundly woken for AM meds blood glucose check. PT says abd pain 06/04 but appears comfortable.
--- NOTE | 2020-04-26 07:46 | NUR ---
SR @ 63 PER TELE
--- NOTE | 2020-04-26 16:41 | NUR ---
SHIFT SUMMARY PATIENT IS A&O. IND. FREQUENTLY LEAVES HIS ROOM. HE C/O PAIN 10/10 EVERY TWO HOURS THAT HE REPORTS STARTS TO WORSEN AN HOUR AFTER PAIN MED ADMINISTRATION. MEDICATED FOR NAUSEA INTERMITTENTLY WELL. TORADOL STARTED. BOWEL CARE ORDERED PATIENT TAKES LARGE AMOUNT OF NARCOTICS AND HASNT HAD A BM SINCE 04/20. DIET ADVANCED TO FULL LIQUID STARTING TOMORROW.
--- NOTE | 2020-04-27 01:47 | NUR ---
Young adult Male continues with co abd pain 05/05 rt upper quad with minimal relief from 1.5 mg dilaudid Q 2 hours PRN & toradol 30 mg IV Q 6 hours. He calls for more narcotics at about 1.5 hours. He continues to wander the floor & leave floor interupting tele monitoring. NSR rate 70s. PT says he has episodes of pancreatitis acute that last about 2 weeks then chronic pancreatitis. Appetite & fluid intake poor. On IVF with potassium. Bowel care started will have full liquid diet this AM. Some nausea no vomiting. using kpad to back with mild helpful effect.
[2020-04-27 04:54] LABS: BASOPHILS ABSOLUTE AUTO 0.02 K/mm3 (0.00-0.23); BASOPHILS PERCENT AUTO 0 % (0-2); EOSINOPHILS ABSOLUTE AUTO 0.27 K/mm3 (0.00-0.68); EOSINOPHILS PERCENT AUTO 5 % (0-6); Hematocrit 36.6 % (37.0-53.0); Hemoglobin 12.1 g/dL (13.5-17.5); IMMATURE GRAN ABSOLUTE AUTO 0.01 K/mm3 (0.00-0.10); IMMATURE GRAN PERCENT AUTO 0 % (0-1); LYMPHOCYTES ABSOLUTE AUTO 2.85 K/mm3 (0.84-5.20); LYMPHOCYTES PERCENT AUTO 53 % (21-46); MONOCYTES ABSOLUTE AUTO 0.46 K/mm3 (0.16-1.47); MONOCYTES PERCENT AUTO 9 % (4-13); Mean Corpuscular HGB Conc 33.1 g/dL (31.5-36.5); Mean Corpuscular Volume 88 fL (80-100); NEUTROPHILS ABSOLUTE AUTO 1.76 K/mm3 (1.96-9.15); NEUTROPHILS PERCENT AUTO 33 % (41-73); Platelet Count 280 K/mm3 (150-400); RDW Coefficient Variation 14.6 % (11.7-14.2); RDW Standard Deviation 47.1 fL (35.1-46.3); Red Blood Cell Count 4.17 M/mm3 (4.30-5.90); White Blood Cell Count 5.37 K/mm3 (4.00-11.30)
[2020-04-27 05:22] LABS: Alanine Aminotransfer (ALT/SGP 41 U/L (12-78); Albumin, Blood 2.8 g/dL (3.4-5.0); Albumin/Globulin Ratio 0.7 (0.8-1.8); Alk Phos 139 U/L (50-136); Anion Gap 3 mmol/L (6-16); Aspartate Aminotrans (AST/SGOT 55 U/L (12-37); Bilirubin, Total 0.6 mg/dL (0.1-1.0); Blood Urea Nitrogen 12 mg/dL (8-24); Bun/Creatinine Ratio 11.7 (12.0-20.0); CO2, Blood 36 mmol/L (21-32); Calcium, Blood 8.8 mg/dL (8.5-10.1); Chloride, Blood 95 mmol/L (98-108); Creatinine, Blood 1.03 mg/dL (0.60-1.20); Globulin, Blood 3.9 g/dL (2.2-4.0); Glomerular Filtration Rate >60 (60-); Glucose, Blood 170 mg/dL (70-99); Magnesium, Blood 2.3 mg/dL (1.6-2.4); Potassium, Blood 3.5 mmol/L (3.5-5.5); Sodium, Blood 134 mmol/L (136-145); Total Protein, Blood 6.7 g/dL (6.4-8.2)
--- NOTE | 2020-04-27 05:52 | NUR ---
PT has poor oral intake & on IVF with potassium at 125 ml hour. PT has requested narcotics for rt upper abd pain radiation approx every 1.5 hours. He has slurred speech forgetful. This AM hypotensive & asking for narcotics declined to medicate with narcotic & rechecked BP after offering fluids & it was higher. Minimal helpful effect from 1.5 mg dilaudid Q 2 hours PRN & PT says toradol is also not helpful. Flat affect, PT frequently leaves floor to smoke. Advanced to full liquids this AM, Blood glucose changed to ACHS from Q 6 hours. Potassium level WNL this AM.
--- NOTE | 2020-04-27 19:25 | NUR ---
summary PT IS A/O X4, IND IN ROOM. HE STATE CONTINUING L ABD PAIN THAT RADIATES TO BACK/SHOULDER, HAVE GIVEN IV DILAUDID 1MG ALTERNATING w PERCOCET & TORADOL T/O DAY. PT STATE INCOMPLETE PAIN RELIEF. DR WEIR ORDER CT ABDOMEN & GI CONSULT R/T CONTINUING PAIN, RECURRENT PANCREATITIS. DR MOORE CAME TO SEE PT LATE AFTERNOON PLACE ORDERS FOR CREON. NS w 20 K+ @ 125 ML/HR CONTINUES. HE HAS CONTINUED FL DIET, ENCOURAGED HIM TO BACK OFF SOMEWHAT IF INCREASES ABD PAIN. HE HAS NOT HAD BM MULT DAYS, CT SHOW CONSTIPATION, DR WEIR START MIRALAX, INCREASE BOWEL MEDS. PT STATE MINIMAL URINE OUTPUT, ENCOURAGED HIM TO USE URINAL FOR ACCURATE MEASUREMENT. SBP RUNS LOW, 90'S, DR NEWTON.
--- NOTE | 2020-04-28 04:35 | NUR ---
PEDIGREE TRACER SUMMARY NO ACUTE CHANGES THIS SHIFT. PT AAOX4 AND PLEASANT. CONTINUES TO HAVE ABD PAIN, MEDICATED PER EMAR EVERY FEW HOURS. PT ABLE TO SLEEP OFF/ON THROUGH THE NIGHT. STARTED BOWEL MEDS TONIGHT PT HASN'T HAD BM IN SEVERAL DAYS. VSS, WILL CONTINUE TO MONITOR.
[2020-04-28 05:45] LABS: BASOPHILS ABSOLUTE AUTO 0.01 K/mm3 (0.00-0.23); BASOPHILS PERCENT AUTO 0 % (0-2); EOSINOPHILS ABSOLUTE AUTO 0.27 K/mm3 (0.00-0.68); EOSINOPHILS PERCENT AUTO 5 % (0-6); Hematocrit 35.8 % (37.0-53.0); Hemoglobin 11.8 g/dL (13.5-17.5); IMMATURE GRAN ABSOLUTE AUTO 0.01 K/mm3 (0.00-0.10); IMMATURE GRAN PERCENT AUTO 0 % (0-1); LYMPHOCYTES ABSOLUTE AUTO 2.81 K/mm3 (0.84-5.20); LYMPHOCYTES PERCENT AUTO 50 % (21-46); MONOCYTES ABSOLUTE AUTO 0.42 K/mm3 (0.16-1.47); MONOCYTES PERCENT AUTO 7 % (4-13); Mean Corpuscular Volume 88 fL (80-100); Mean Platelet Volume 9.8 fL (9.1-12.4); NEUTROPHILS ABSOLUTE AUTO 2.16 K/mm3 (1.96-9.15); NEUTROPHILS PERCENT AUTO 38 % (41-73); Platelet Count 237 K/mm3 (150-400); RDW Coefficient Variation 14.6 % (11.7-14.2); RDW Standard Deviation 47.7 fL (35.1-46.3); Red Blood Cell Count 4.07 M/mm3 (4.30-5.90); White Blood Cell Count 5.68 K/mm3 (4.00-11.30)
[2020-04-28 06:03] LABS: Alanine Aminotransfer (ALT/SGP 41 U/L (12-78); Albumin, Blood 2.6 g/dL (3.4-5.0); Albumin/Globulin Ratio 0.7 (0.8-1.8); Alk Phos 119 U/L (50-136); Anion Gap 4 mmol/L (6-16); Aspartate Aminotrans (AST/SGOT 37 U/L (12-37); Bilirubin, Total 0.3 mg/dL (0.1-1.0); Blood Urea Nitrogen 10 mg/dL (8-24); Bun/Creatinine Ratio 13.6 (12.0-20.0); CO2, Blood 30 mmol/L (21-32); Calcium, Blood 8.7 mg/dL (8.5-10.1); Chloride, Blood 105 mmol/L (98-108); Creatinine, Blood 0.74 mg/dL (0.60-1.20); Globulin, Blood 3.6 g/dL (2.2-4.0); Glomerular Filtration Rate >60 (60-); Glucose, Blood 104 mg/dL (70-99); Potassium, Blood 3.9 mmol/L (3.5-5.5); Sodium, Blood 139 mmol/L (136-145); Total Protein, Blood 6.2 g/dL (6.4-8.2)
--- NOTE | 2020-04-28 16:48 | NUR ---
summary PT CONTINUES TO REPORT UPPER ABDOMINAL PAIN 8-05/05, STATE TOLERABLE RELIEF ALTERNATING DILAUDID 1MG & PERCOCET APPROX Q2 HRS. HX RECURRENT PANCREATITIS, HE STATE FOLLOWS UP WITH DR @ [facility]. GI WAS CONSULTED YESTERDAY. NS w 20K+ @ 125 ML/HR CONTINUES. TOLERATING FULL LIQUID DIET. VSS. HE IS A SMOKER, GOES OUT 2-3 X'S THIS SHIFT.
--- NOTE | 2020-04-29 06:05 | NUR ---
SHIFT SUMMARY PT CONTINUES TO BE PAINFUL, ABD IS TENDER IN THE UPPER QUADRANT. PT HAS NOT HAD N/V THIS SHIFT. CONTINUES ON FULL LIQUID DIET, WITH GOOD APPETITE. MEDICATED FOR PAIN PER EMAR WITH EFFECT. IVF INFUSING ORDERED. PT HAS BEEN INDEPENDENT AND AMBULATORY IN THE ROOM. MAKES NEEDS KNOWN. NO ACUTE CHANGES OVERNIGHT. BED IN LOWEST POSITION, CALL LIGHT WITHIN REACH. WILL CONTINUE TO MONITOR AND REPORT TO ONCOMING RN.
--- NOTE | 2020-04-29 17:04 | NUR ---
SHIFT SUMMARY PATIENT ALERT, ORIENTED, AND INDEPENDENT IN THE ROOM THIS SHIFT. PATIENT CONTINUES TO HAVE PAIN IN HIS UPPER ABDOMEN, MEDICATED FOR PAIN THROUGHOUT THIS SHIFT. PATIENT AMBULATED IN THE HALLS MULTIPLE TIMES THIS SHIFT. PATIENT'S MOTHER IN THE ROOM TO VISIT THIS AM. PATIENT CURRENTLY SITTING UP IN BED AWAITING DINNER.
--- NOTE | 2020-04-30 05:39 | NUR ---
SENIOR BI DEVELOPER SUMMARY PT A/O X4. INDEPENDENT IN ROOM. MEDICATED FOR ABD PAIN THROUGHOUT THE NIGHT. PT DENIES NAUSEA. HE IS TOLERATING PO FLUIDS WITHOUT FEELING NAUSEOUS. VSS. NO ACUTE CHANGES.
[2020-04-30] MEDS ORDERED: CREON DR 12,001 EACH PO (13:22)
[2020-04-30] MEDS ORDERED: SENN187 PO (13:23)
[2020-04-30] MEDS ORDERED: MIRALAX17 GM PO (13:23)
[2020-04-30] MEDS ORDERED: ROXICODONE5 MG PO (13:24)
[2020-04-30] MEDS ORDERED: PANT40 PO (13:24)
[2020-04-30] MEDS ORDERED: PROM25 PO (13:25)
--- NOTE | 2020-04-30 14:01 | NUR ---
DISCHARGE NOTE PATIENT DISCHARGED TO HOME. PATIENT ALERT, ORIENTED, AND INDEPENDENT THIS SHIFT. PATIENT REMAINS PAINFUL AND WAS DISCHARGED WITH A PRESCRIPTION OF PAIN MEDICATION. PATIENT ADVANCED TO REGULAR ADA DIET THIS SHIFT AND TOLERATED IT WELL. PATIENT SHOWERED AND AMBULATED INDEPENDENTLY THIS SHIFT. POWERGLIDE REMOVED PRIOR TO DISCHARGE. PATIENT AMBULATED OFF THE UNIT, REFUSING WHEELCHAIR, ACCOMPANIED BY STAFF. PATIENT PROVIDED WITH DISCHARGE AND MEDICATION INSTRUCTIONS. PATIENT STATES NO QUESTIONS AT THIS TIME.
== END 2020-04-30 13:55 | disposition home or self-care (01) | DRG 438 ==
LOC: ER 11:59 → ERHOLD 15:30 → MEDS 15:30
PROVIDERS: Emergency Medicine; Internal Medicine; Nurse Practitioner Acute Care; ADMIT Hospitalist
DX: K85.90 Acute pancreatitis without necrosis or infection, unspecified (principal); E43 Unspecified severe protein-calorie malnutrition; E87.1 Hypo-osmolality and hyponatremia; Z20.828 Contact with and (suspected) exposure to other viral communicable diseases; E11.65 Type 2 diabetes mellitus with hyperglycemia; E83.52 Hypercalcemia; E86.0 Dehydration; E87.6 Hypokalemia; F10.20 Alcohol dependence, uncomplicated; F31.9 Bipolar disorder, unspecified; K86.0 Alcohol-induced chronic pancreatitis; F17.210 Nicotine dependence, cigarettes, uncomplicated; Z68.26 Body mass index [BMI] 26.0-26.9, adult; K21.9 Gastro-esophageal reflux disease without esophagitis
CPT/HCPCS: 36415; 74176; 74177; 80048; 80053; 80069; 82947; 83690; 83735; 85025; 85610; 85651; 96361; 96374; 96375; 99285-25; C9113; J0780; J1170; J1650; J1885; J2405; J2550; J3010; J3480; J7030; J7050; Q9967

== ENCOUNTER 2020-07-07 14:01 | Emergency (ER) | payer OTHER ==
[~2020-07-07] VITALS: Ht 175.3 cm; Wt 81.2 kg
[~2020-07-07 14:01] MED LIST changes: +CREON DR 12,001 EACH PO; +HUMALOG KW100 UNIT/1 SC; +LANTUS SOL100 UNIT/1 SC; +ROXICODONE5 MG PO
[2020-07-07 14:28] LABS: BASOPHILS ABSOLUTE AUTO 0.02 K/mm3 (0.00-0.23); BASOPHILS PERCENT AUTO 0 % (0-2); EOSINOPHILS ABSOLUTE AUTO 0.08 K/mm3 (0.00-0.68); EOSINOPHILS PERCENT AUTO 1 % (0-6); Hemoglobin 16.2 g/dL (13.5-17.5); IMMATURE GRAN ABSOLUTE AUTO 0.03 K/mm3 (0.00-0.10); IMMATURE GRAN PERCENT AUTO 0 % (0-1); LYMPHOCYTES ABSOLUTE AUTO 2.03 K/mm3 (0.84-5.20); LYMPHOCYTES PERCENT AUTO 18 % (21-46); MONOCYTES ABSOLUTE AUTO 0.68 K/mm3 (0.16-1.47); MONOCYTES PERCENT AUTO 6 % (4-13); Mean Corpuscular HGB 30.3 pg (26.0-34.0); Mean Corpuscular Volume 84 fL (80-100); Mean Platelet Volume 9.3 fL (9.1-12.4); NEUTROPHILS ABSOLUTE AUTO 8.48 K/mm3 (1.96-9.15); NEUTROPHILS PERCENT AUTO 75 % (41-73); Platelet Count 299 K/mm3 (150-400); RDW Coefficient Variation 14.2 % (11.7-14.2); RDW Standard Deviation 43.7 fL (35.1-46.3); Red Blood Cell Count 5.34 M/mm3 (4.30-5.90); White Blood Cell Count 11.32 K/mm3 (4.00-11.30)
[2020-07-07 14:54] LABS: Alanine Aminotransfer (ALT/SGP 19 U/L (12-78); Albumin, Blood 3.6 g/dL (3.4-5.0); Albumin/Globulin Ratio 0.8 (0.8-1.8); Alk Phos 125 U/L (50-136); Anion Gap 12 mmol/L (6-16); Aspartate Aminotrans (AST/SGOT 19 U/L (12-37); Bilirubin, Total 1.1 mg/dL (0.1-1.0); Blood Urea Nitrogen 17 mg/dL (8-24); Bun/Creatinine Ratio 21.1 (12.0-20.0); CO2, Blood 27 mmol/L (21-32); Calcium, Blood 9.8 mg/dL (8.5-10.1); Chloride, Blood 93 mmol/L (98-108); Creatinine, Blood 0.81 mg/dL (0.60-1.20); Globulin, Blood 4.8 g/dL (2.2-4.0); Glomerular Filtration Rate >60 (60-); Glucose, Blood 229 mg/dL (70-99); Potassium, Blood 2.8 mmol/L (3.5-5.5); Sodium, Blood 132 mmol/L (136-145); Total Protein, Blood 8.4 g/dL (6.4-8.2)
[2020-07-07] MEDS ORDERED: ONDA4ODT MM (21:25)
[2020-07-07] MEDS ORDERED: OXYACE7.5T PO (21:25)
== END 2020-07-07 22:10 | disposition home or self-care (01) ==
LOC: ER 14:01
PROVIDERS: Emergency Medicine
DX: K86.1 Other chronic pancreatitis (principal); F31.9 Bipolar disorder, unspecified; F90.9 Attention-deficit hyperactivity disorder, unspecified type; E11.9 Type 2 diabetes mellitus without complications; F17.210 Nicotine dependence, cigarettes, uncomplicated; Z79.4 Long term (current) use of insulin; Z88.5 Allergy status to narcotic agent; Z79.899 Other long term (current) drug therapy
CPT/HCPCS: 36415; 80053; 83690; 85025; 96374; 96375; 96376; 99284-25; J1170; J1630; J2405

== ENCOUNTER 2021-02-13 13:04 | Emergency (ER) | payer OTHER ==
[~2021-02-13] VITALS: Ht 175.3 cm; Wt 93.4 kg
[~2021-02-13 13:04] MED LIST changes: +NICODERM CQ1 EAC1 TOP; +Nicoderm Cq1 EAC1 TOP; +OXYACE7.5T PO; +POTA10T PO; +TUMS500 MG PO; +VISBIOME PROBIOTIC PO
[2021-02-13 14:33] LABS: BASOPHILS ABSOLUTE AUTO 0.01 K/mm3 (0.00-0.23); BASOPHILS PERCENT AUTO 0 % (0-2); EOSINOPHILS ABSOLUTE AUTO 0.15 K/mm3 (0.00-0.68); EOSINOPHILS PERCENT AUTO 2 % (0-6); Hematocrit 40.7 % (37.0-53.0); Hemoglobin 14.7 g/dL (13.5-17.5); IMMATURE GRAN ABSOLUTE AUTO 0.02 K/mm3 (0.00-0.10); IMMATURE GRAN PERCENT AUTO 0 % (0-1); LYMPHOCYTES ABSOLUTE AUTO 2.42 K/mm3 (0.84-5.20); LYMPHOCYTES PERCENT AUTO 27 % (21-46); MONOCYTES ABSOLUTE AUTO 0.67 K/mm3 (0.16-1.47); MONOCYTES PERCENT AUTO 8 % (4-13); Mean Corpuscular HGB 30.9 pg (26.0-34.0); Mean Corpuscular HGB Conc 36.1 g/dL (31.5-36.5); Mean Corpuscular Volume 86 fL (80-100); Mean Platelet Volume 9.5 fL (9.1-12.4); NEUTROPHILS ABSOLUTE AUTO 5.58 K/mm3 (1.96-9.15); NEUTROPHILS PERCENT AUTO 63 % (41-73); Platelet Count 286 K/mm3 (150-400); RDW Coefficient Variation 13.9 % (11.7-14.2); RDW Standard Deviation 43.3 fL (35.1-46.3); Red Blood Cell Count 4.75 M/mm3 (4.30-5.90); White Blood Cell Count 8.85 K/mm3 (4.00-11.30)
[2021-02-13 14:52] LABS: Alanine Aminotransfer (ALT/SGP 21 U/L (12-78); Albumin, Blood 3.8 g/dL (3.4-5.0); Albumin/Globulin Ratio 0.9 (0.8-1.8); Alk Phos 160 U/L (50-136); Anion Gap 5 mmol/L (6-16); Aspartate Aminotrans (AST/SGOT 15 U/L (12-37); Bilirubin, Total 1.2 mg/dL (0.1-1.0); Blood Urea Nitrogen 13 mg/dL (8-24); Bun/Creatinine Ratio 14.3 (12.0-20.0); CO2, Blood 32 mmol/L (21-32); Calcium, Blood 9.7 mg/dL (8.5-10.1); Chloride, Blood 97 mmol/L (98-108); Creatinine, Blood 0.91 mg/dL (0.60-1.20); Globulin, Blood 4.1 g/dL (2.2-4.0); Glomerular Filtration Rate >60 (60-); Glucose, Blood 290 mg/dL (70-99); Potassium, Blood 3.2 mmol/L (3.5-5.5); Sodium, Blood 134 mmol/L (136-145); Total Protein, Blood 7.9 g/dL (6.4-8.2)
[2021-02-13] MEDS ORDERED: ZENPEP DR 10,01 EACH PO (20:20)
[2021-02-13] MEDS ORDERED: ONDA4ODT MM (20:40)
[2021-02-13] MEDS ORDERED: Percocet 5-3251 EACH PO (20:40)
== END 2021-02-13 21:08 | disposition home or self-care (01) ==
LOC: ER 13:04
PROVIDERS: Physician Assistant
DX: K85.90 Acute pancreatitis without necrosis or infection, unspecified (principal); E11.9 Type 2 diabetes mellitus without complications; F17.210 Nicotine dependence, cigarettes, uncomplicated; Z88.5 Allergy status to narcotic agent; Z79.899 Other long term (current) drug therapy
CPT/HCPCS: 74176; 80053; 83690; 85025; 96365; 96366; 96375; 96376; 99284-25; A9270; J1170; J2405; J2550; J3480; J7120

== ENCOUNTER 2022-03-19 13:07 | Inpatient (IN) | payer OTHER ==
[~2022-03-19] VITALS: Ht 175.3 cm; Wt 93.0 kg
[~2022-03-19 13:07] MED LIST changes: +ZENPEP DR 10,01 EACH PO
[2022-03-19 13:55] LABS: BASOPHILS ABSOLUTE AUTO 0.02 K/mm3 (0.00-0.23); BASOPHILS PERCENT AUTO 0 % (0-2); EOSINOPHILS ABSOLUTE AUTO 0.13 K/mm3 (0.00-0.68); EOSINOPHILS PERCENT AUTO 1 % (0-6); Hemoglobin 16.2 g/dL (13.5-17.5); IMMATURE GRAN ABSOLUTE AUTO 0.02 K/mm3 (0.00-0.10); IMMATURE GRAN PERCENT AUTO 0 % (0-1); LYMPHOCYTES ABSOLUTE AUTO 1.64 K/mm3 (0.84-5.20); LYMPHOCYTES PERCENT AUTO 17 % (21-46); MONOCYTES ABSOLUTE AUTO 0.68 K/mm3 (0.16-1.47); MONOCYTES PERCENT AUTO 7 % (4-13); Mean Corpuscular HGB 31.6 pg (26.0-34.0); Mean Corpuscular Volume 88 fL (80-100); Mean Platelet Volume 9.3 fL (9.1-12.4); NEUTROPHILS ABSOLUTE AUTO 7.41 K/mm3 (1.96-9.15); NEUTROPHILS PERCENT AUTO 75 % (41-73); Platelet Count 323 K/mm3 (150-400); RDW Coefficient Variation 12.3 % (11.7-14.2); RDW Standard Deviation 39.4 fL (35.1-46.3); Red Blood Cell Count 5.13 M/mm3 (4.30-5.90)
[2022-03-19 14:16] LABS: Albumin, Blood 3.8 g/dL (3.4-5.0); Albumin/Globulin Ratio 0.8 (0.8-1.8); Bun/Creatinine Ratio 25.4 (12.0-20.0); Creatinine, Blood 0.75 mg/dL (0.60-1.20); Globulin, Blood 4.6 g/dL (2.2-4.0); Potassium, Blood 3.2 mmol/L (3.5-5.5); Total Protein, Blood 8.4 g/dL (6.4-8.2)
[2022-03-20 05:44] LABS: Albumin/Globulin Ratio 0.8 (0.8-1.8); Bilirubin, Total 0.9 mg/dL (0.1-1.0); Bun/Creatinine Ratio 29.4 (12.0-20.0); Calcium, Blood 8.9 mg/dL (8.5-10.1); Creatinine, Blood 0.55 mg/dL (0.60-1.20); Globulin, Blood 3.6 g/dL (2.2-4.0); Potassium, Blood 2.9 mmol/L (3.5-5.5); Total Protein, Blood 6.6 g/dL (6.4-8.2)
--- NOTE | 2022-03-20 06:20 | NUR ---
PT ADMITTED WITH DIFFUSE ABD PAIN + N/V. HISTORY OF NECROTIZING PANCREATITIS. AGRESSIVE IVF HYDRATION COMPLETE (5 L TOTAL INFUSED) AFTER CURRENT BAG. EMESIS EPISODE X4 OVERNIGHT. MEDICATED WITH 1MG DILAUDID Q4H. MULTIPLE UNMEASURED VOIDS (URINE). DISCREPENCIES NOTED BETWEEN INFORMATION GIVEN IN ED AND UPON ADMISSION TO UNIT. NO OTHER ISSUES NOTED THROUGHOUT SHIFT.
--- NOTE | 2022-03-20 16:29 | NUR ---
SHIFT SUMMARY PT [id number]. PT REPORTS ABDOMINAL PAIN AND NAUSEA THIS SHIFT. NO VOMITING NOTED. PT IS INDEPENDENT IN THE ROOM. GAIT STEADY. PT WAS GIVEN POTASSIUM INFUSION THIS SHIFT. PT TOLERATING CLEAR LIQUID DIET AT THIS TIME. PER UNIT MANAGER, TELE RUNNING SR AT 68. PT DENIES CP OR SOB. PT IS CURRENTLY SITTING IN BED, DROWSY, WATCHING TV. PT REQUESTING PAIN MEDS Q2 WITH REPORTED PAIN LEVELS BETWEEN 8-10/10. PT HAS UNCOLLECTED STOOL SAMPLE. VITALS REVIEWED. CALL LIGHT IN REACH.
--- NOTE | 2022-03-21 04:50 | NUR ---
SHIFT SUMMARY PT CONTINUES TO HAVE PAIN. MEDICATING EVERY 2 HOURS WITH DILAUDID. PT HAS NOT COMPLAINED OF NAUSEA SINCE LAST NIGHT. PT STILL HAS LR RUNNING AT 150 ML/HR. PT HAS CALL LIGHT WITHIN HIS REACH.
[2022-03-21 05:56] LABS: Alanine Aminotransfer (ALT/SGP 24 U/L (12-78); Albumin, Blood 2.8 g/dL (3.4-5.0); Albumin/Globulin Ratio 0.8 (0.8-1.8); Alk Phos 151 U/L (50-136); Anion Gap 11 mmol/L (6-16); Aspartate Aminotrans (AST/SGOT 22 U/L (12-37); Bilirubin, Total 0.9 mg/dL (0.1-1.0); Blood Urea Nitrogen 15 mg/dL (8-24); Bun/Creatinine Ratio 25.4 (12.0-20.0); CHOL/HDL RATIO 2.9; CO2, Blood 26 mmol/L (21-32); Calcium, Blood 8.9 mg/dL (8.5-10.1); Chloride, Blood 99 mmol/L (98-108); Cholesterol 147 mg/dL (50-200); Creatinine, Blood 0.59 mg/dL (0.60-1.20); Globulin, Blood 3.7 g/dL (2.2-4.0); Glomerular Filtration Rate 127 (60-); Glucose, Blood 223 mg/dL (70-99); HDL Cholesterol 51 mg/dL (>39); LDL/HDL RATIO 1.5; Low Density Lipoprotein Chol 74 mg/dL (0-110); Potassium, Blood 3.5 mmol/L (3.5-5.5); Sodium, Blood 136 mmol/L (136-145); Total Protein, Blood 6.5 g/dL (6.4-8.2); Triglycerides 109 mg/dL (30-140); Very Low Density Lipoprot Chol 21 mg/dL (6-28)
--- NOTE | 2022-03-21 18:17 | NUR ---
PATIENT IS ALERT AND ORIENTED AND COOPERATIVE WITH CARE. C/O 8/10 PAIN FROM PANCREATITIS, MEDICATED PER EMAR. PATIENT WAS ABLE TO TAKE A NAP THIS AFTERNOON. PATIENT TOLERATING FULL LIQUID DIET AND ASKED FOR SANDWICH FOR DINNER WHILE C/O 8/10 PAIN. RN ENCOURAGED TO STICK TO FULL LIQUID DIET. WILL CONTINUE TO MONITOR
--- NOTE | 2022-03-22 04:34 | NUR ---
SHIFT SUMMARY PT IS UPSET ABOUT HIS PAIN MEDICATION REGIMENT. PT WAS WORRIED THAT HE WOULD BE AWOKEN AT 0300 LIKE USUAL, PER PT, AND NOT BE ABLE TO GET PAIN MEDS. PT HAS BEEN ASLEEP OFF AND ON TONIGHT AND HAS NOT ASKED FOR MEDICATION IN A FEW HOURS. PT COMPLAINED EARLIER OF NEW ONSET OF DIARRHEA AND PT DISCONNECTED AND TURNED OFF HIS IV OF LR THAT WAS RUNNING. PT REFUSES THE MEDICATION CURRENTLY, STATING THAT IT IS GIVING HIM DIARRHEA. MEDICATION WAS ORDERED PER DR. ARTHUR, BUT PT HAS BEEN SLEEPING SINCE ASKING FOR IT. PT HAS CALL LIGHT WITHIN REACH.
[2022-03-22 05:32] LABS: BASOPHILS PERCENT AUTO 0 % (0-2); EOSINOPHILS ABSOLUTE AUTO 0.21 K/mm3 (0.00-0.68); EOSINOPHILS PERCENT AUTO 3 % (0-6); Hematocrit 36.2 % (37.0-53.0); Hemoglobin 12.9 g/dL (13.5-17.5); IMMATURE GRAN ABSOLUTE AUTO 0.02 K/mm3 (0.00-0.10); IMMATURE GRAN PERCENT AUTO 0 % (0-1); LYMPHOCYTES ABSOLUTE AUTO 1.43 K/mm3 (0.84-5.20); LYMPHOCYTES PERCENT AUTO 19 % (21-46); MONOCYTES ABSOLUTE AUTO 0.56 K/mm3 (0.16-1.47); MONOCYTES PERCENT AUTO 8 % (4-13); Mean Corpuscular HGB 31.9 pg (26.0-34.0); Mean Corpuscular HGB Conc 35.6 g/dL (31.5-36.5); Mean Corpuscular Volume 90 fL (80-100); Mean Platelet Volume 9.4 fL (9.1-12.4); NEUTROPHILS ABSOLUTE AUTO 5.15 K/mm3 (1.96-9.15); NEUTROPHILS PERCENT AUTO 70 % (41-73); Platelet Count 242 K/mm3 (150-400); RDW Coefficient Variation 12.1 % (11.7-14.2); RDW Standard Deviation 39.4 fL (35.1-46.3); Red Blood Cell Count 4.04 M/mm3 (4.30-5.90); White Blood Cell Count 7.37 K/mm3 (4.00-11.30)
[2022-03-22 06:10] LABS: Albumin, Blood 2.7 g/dL (3.4-5.0); Albumin/Globulin Ratio 0.7 (0.8-1.8); Bilirubin, Total 0.8 mg/dL (0.1-1.0); Bun/Creatinine Ratio 18.7 (12.0-20.0); Calcium, Blood 8.9 mg/dL (8.5-10.1); Creatinine, Blood 0.59 mg/dL (0.60-1.20); Globulin, Blood 3.8 g/dL (2.2-4.0); Potassium, Blood 2.9 mmol/L (3.5-5.5); Total Protein, Blood 6.5 g/dL (6.4-8.2)
--- NOTE | 2022-03-22 09:00 | NUR ---
PT A/O X3, TALKATIVE. STATES STILL PAINFUL. STATS ABLE TO HOLD SOME FOOD BETTER. DOES NOT CAUSE MORE PAIN. DENIES DIARRHEA THIS DAY, SO FAR, DID HAVE LAST NITE. H/R REG, NO MURMUR NOTED. PER TELE NSR AT 69. NO EDEMA NOTED. LUNGS CLEAR, RESP EASY UNLABORED ON R.A. BT X4 TENDR, NO DIARRHEA THIS DAY. VIODS BATHROOM. INDEPENDANT IN ROON. BED IN LOW POSITION, CALL LITE IN REACH, CALLS APPROP
--- NOTE | 2022-03-22 15:13 | NUR ---
DISCHARGE REVIEWED WITH PT. HE VERBALIZED UNDERSTANDING MEDS AND INSTRUCT. NO NEW MEDS. TELE REMOVED. IV PULLED INTACT. PT WHEELED TO DOOR AT 1512 BY AIDE.
== END 2022-03-22 15:00 | disposition home or self-care (01) | DRG 439 ==
LOC: ER 13:07 → MEDS 21:12 → ER 21:15 → MEDS 21:32 → UNDODEPER 21:46 → MEDS 22:23
PROVIDERS: Emergency Medicine; Family Medicine; Internal Medicine; ADMIT Internal Medicine
DX: K85.90 Acute pancreatitis without necrosis or infection, unspecified (principal); E87.3 Alkalosis; K59.00 Constipation, unspecified; K86.1 Other chronic pancreatitis; F90.9 Attention-deficit hyperactivity disorder, unspecified type; F17.210 Nicotine dependence, cigarettes, uncomplicated; K21.9 Gastro-esophageal reflux disease without esophagitis; E87.6 Hypokalemia; E86.0 Dehydration; Z90.89 Acquired absence of other organs; Z98.890 Other specified postprocedural states; Z88.6 Allergy status to analgesic agent; Z79.899 Other long term (current) drug therapy
CPT/HCPCS: 36415; 74177; 80053; 80061; 82150; 82947; 83036; 83690; 83735; 84132; 85025; 96365-59; 96366; 96375; 96376; 99285-25; A9270; C9113; J1170; J1790; J1815; J2405; J2550; J3480; J7030; J7120; Q9967

== ENCOUNTER 2023-03-20 15:33 | Emergency (ER) | payer OTHER ==
[~2023-03-20] VITALS: Ht 175.3 cm; Wt 77.1 kg
[~2023-03-20 15:33] MED LIST changes: +HUMALOG JU100 UNIT/2 SC; +MS Contin15 MG PO; +PROM12.5S PR; +ZENPEP DR 3,001 EACH PO
[2023-03-20 16:08] LABS: BASOPHILS ABSOLUTE AUTO 0.02 K/mm3 (0.00-0.23); BASOPHILS PERCENT AUTO 0 % (0-2); EOSINOPHILS ABSOLUTE AUTO 0.08 K/mm3 (0.00-0.68); EOSINOPHILS PERCENT AUTO 1 % (0-6); Hemoglobin 15.1 g/dL (13.5-17.5); IMMATURE GRAN ABSOLUTE AUTO 0.03 K/mm3 (0.00-0.10); IMMATURE GRAN PERCENT AUTO 0 % (0-1); LYMPHOCYTES ABSOLUTE AUTO 2.58 K/mm3 (0.84-5.20); LYMPHOCYTES PERCENT AUTO 26 % (21-46); MONOCYTES ABSOLUTE AUTO 0.57 K/mm3 (0.16-1.47); MONOCYTES PERCENT AUTO 6 % (4-13); Mean Corpuscular HGB 31.7 pg (26.0-34.0); Mean Corpuscular HGB Conc 36.8 g/dL (31.5-36.5); Mean Corpuscular Volume 86 fL (80-100); Mean Platelet Volume 9.9 fL (9.1-12.4); NEUTROPHILS ABSOLUTE AUTO 6.67 K/mm3 (1.96-9.15); NEUTROPHILS PERCENT AUTO 67 % (41-73); Platelet Count 330 K/mm3 (150-400); RDW Coefficient Variation 11.9 % (11.7-14.2); RDW Standard Deviation 37.5 fL (35.1-46.3); Red Blood Cell Count 4.76 M/mm3 (4.30-5.90); White Blood Cell Count 9.95 K/mm3 (4.00-11.30)
[2023-03-20 16:26] LABS: Albumin, Blood 3.9 g/dL (3.4-5.0); Bilirubin, Total 1.2 mg/dL (0.1-1.0); Calcium, Blood 9.1 mg/dL (8.5-10.1); Creatinine, Blood 0.65 mg/dL (0.60-1.20); Globulin, Blood 4.1 g/dL (2.2-4.0); Potassium, Blood 3.8 mmol/L (3.5-5.5)
[2023-03-20 20:00] VITALS: BP 106/62
[2023-03-20] MEDS ORDERED: NARCAN4 M1 (20:06)
[2023-03-20] MEDS ORDERED: OXYC10TA19 PO (20:06)
[2023-03-20] MEDS ORDERED: MORP15ER PO (20:06)
[2023-03-20] MEDS ORDERED: ONDA4ODT MM (20:06)
== END 2023-03-20 20:35 | disposition home or self-care (01) ==
LOC: ER 15:33
PROVIDERS: Physician Assistant
DX: K29.70 Gastritis, unspecified, without bleeding (principal); E11.65 Type 2 diabetes mellitus with hyperglycemia; F17.210 Nicotine dependence, cigarettes, uncomplicated; Z88.5 Allergy status to narcotic agent; Z79.4 Long term (current) use of insulin; Z79.899 Other long term (current) drug therapy
CPT/HCPCS: 74177; 80053; 82947; 83690; 85025; 96361; 96374; 96375; 99284-25; A9270; J1790; J1885; J2405; J7030; Q9967

== ENCOUNTER → 2023-07-22 | Outpatient (CLI) | payer OTHER ==
[~2023-07-22] MED LIST changes: +MORP15ER PO; +NARCAN4 M1
== END | disposition home or self-care (01) ==
LOC: LAB 17:13 → LAB SHORT 17:13
PROVIDERS: Family Medicine
DX: G89.4 Chronic pain syndrome (principal)

== ENCOUNTER → 2023-08-13 | Outpatient (CLI) | payer OTHER ==
[2023-08-13 12:10] LABS: BASOPHILS ABSOLUTE AUTO 0.01 K/mm3 (0.00-0.23); BASOPHILS PERCENT AUTO 0 % (0-2); EOSINOPHILS ABSOLUTE AUTO 0.11 K/mm3 (0.00-0.68); EOSINOPHILS PERCENT AUTO 2 % (0-6); Hematocrit 43.8 % (37.0-53.0); Hemoglobin 15.5 g/dL (13.5-17.5); IMMATURE GRAN ABSOLUTE AUTO 0.02 K/mm3 (0.00-0.10); IMMATURE GRAN PERCENT AUTO 0 % (0-1); LYMPHOCYTES ABSOLUTE AUTO 2.23 K/mm3 (0.84-5.20); LYMPHOCYTES PERCENT AUTO 36 % (21-46); MONOCYTES ABSOLUTE AUTO 0.37 K/mm3 (0.16-1.47); MONOCYTES PERCENT AUTO 6 % (4-13); Mean Corpuscular HGB 31.3 pg (26.0-34.0); Mean Corpuscular HGB Conc 35.4 g/dL (31.5-36.5); Mean Corpuscular Volume 88 fL (80-100); Mean Platelet Volume 9.3 fL (9.1-12.4); NEUTROPHILS ABSOLUTE AUTO 3.47 K/mm3 (1.96-9.15); NEUTROPHILS PERCENT AUTO 56 % (41-73); Platelet Count 261 K/mm3 (150-400); RDW Standard Deviation 41.5 fL (35.1-46.3); Red Blood Cell Count 4.96 M/mm3 (4.30-5.90); White Blood Cell Count 6.21 K/mm3 (4.00-11.30)
[2023-08-13 12:27] LABS: Albumin, Blood 3.7 g/dL (3.4-5.0); Albumin/Globulin Ratio 0.9 (0.8-1.8); Bilirubin, Total 0.5 mg/dL (0.1-1.0); Bun/Creatinine Ratio 5.6 (12.0-20.0); Calcium, Blood 9.4 mg/dL (8.5-10.1); Creatinine, Blood 0.9 mg/dL (0.60-1.20); Globulin, Blood 4.3 g/dL (2.2-4.0); Potassium, Blood 4.2 mmol/L (3.5-5.5)
== END | disposition home or self-care (01) ==
LOC: LAB 12:05 → LAB SHORT 12:05
PROVIDERS: Family Medicine
DX: R59.9 Enlarged lymph nodes, unspecified (principal)
CPT/HCPCS: 80053; 85025

== ENCOUNTER 2023-09-16 11:54 | Emergency (ER) | payer OTHER ==
[~2023-09-16] VITALS: Ht 175.3 cm; Wt 71.7 kg
[2023-09-16 13:24] LABS: BASOPHILS ABSOLUTE AUTO 0.03 K/mm3 (0.00-0.23); BASOPHILS PERCENT AUTO 0 % (0-2); EOSINOPHILS ABSOLUTE AUTO 0.02 K/mm3 (0.00-0.68); EOSINOPHILS PERCENT AUTO 0 % (0-6); Hematocrit 43.6 % (37.0-53.0); Hemoglobin 15.6 g/dL (13.5-17.5); IMMATURE GRAN ABSOLUTE AUTO 0.02 K/mm3 (0.00-0.10); IMMATURE GRAN PERCENT AUTO 0 % (0-1); LYMPHOCYTES ABSOLUTE AUTO 2.34 K/mm3 (0.84-5.20); LYMPHOCYTES PERCENT AUTO 26 % (21-46); MONOCYTES ABSOLUTE AUTO 0.53 K/mm3 (0.16-1.47); MONOCYTES PERCENT AUTO 6 % (4-13); Mean Corpuscular HGB 31.1 pg (26.0-34.0); Mean Corpuscular HGB Conc 35.8 g/dL (31.5-36.5); Mean Corpuscular Volume 87 fL (80-100); Mean Platelet Volume 10.2 fL (9.1-12.4); NEUTROPHILS ABSOLUTE AUTO 6.13 K/mm3 (1.96-9.15); NEUTROPHILS PERCENT AUTO 68 % (41-73); Platelet Count 346 K/mm3 (150-400); RDW Coefficient Variation 12.6 % (11.7-14.2); RDW Standard Deviation 39.7 fL (35.1-46.3); Red Blood Cell Count 5.01 M/mm3 (4.30-5.90); White Blood Cell Count 9.07 K/mm3 (4.00-11.30)
[2023-09-16 13:49] LABS: Albumin, Blood 3.6 g/dL (3.4-5.0); Albumin/Globulin Ratio 0.9 (0.8-1.8); Bilirubin, Total 0.9 mg/dL (0.1-1.0); Bun/Creatinine Ratio 23.5 (12.0-20.0); Calcium, Blood 9.7 mg/dL (8.5-10.1); Creatinine, Blood 0.47 mg/dL (0.60-1.20); Globulin, Blood 4.1 g/dL (2.2-4.0); Total Protein, Blood 7.7 g/dL (6.4-8.2)
[2023-09-16 16:58] VITALS: BP 138/84
== END 2023-09-16 16:57 | disposition home or self-care (01) ==
LOC: ER 11:54
PROVIDERS: Student in an Organized Health Care Education/Training Program
DX: K86.1 Other chronic pancreatitis (principal); E11.65 Type 2 diabetes mellitus with hyperglycemia; F17.210 Nicotine dependence, cigarettes, uncomplicated; Z88.5 Allergy status to narcotic agent; Z79.4 Long term (current) use of insulin; Z79.891 Long term (current) use of opiate analgesic; Z79.899 Other long term (current) drug therapy
CPT/HCPCS: 74177; 80053; 83690; 85025; 93005; 93010; 96361; 96374; 96375; 99284-25; J1170; J2405; J7030; Q9967

== ENCOUNTER 2025-08-02 10:09 | Emergency (ER) | payer OTHER ==
[~2025-08-02] VITALS: Ht 175.3 cm; Wt 78.5 kg
[~2025-08-02 10:09] MED LIST changes: +B-1100 M1 PO; +DAILY-VITE1 EAC1 PO; +INSULIN LI100 UNIT/6 SC; +NICODERM CQ1 EA11 TOP; +OXAYDO5 M1 PO; +OXYC5 PO; +REGLAN1013 PO; +ZENPEP DR 20,01 EACH PO
[2025-08-02] MEDS ORDERED: Ondansetron HCl 2 MG / ML 2ML Vial IV ONE ×2 (10:35→14:00)
[2025-08-02 11:10] LABS: BASOPHILS ABSOLUTE AUTO 0.02 K/mm3 (0.00-0.23); BASOPHILS PERCENT AUTO 0 % (0-2); EOSINOPHILS ABSOLUTE AUTO 0.13 K/mm3 (0.00-0.68); EOSINOPHILS PERCENT AUTO 2 % (0-6); Hematocrit 41.2 % (37.0-53.0); Hemoglobin 14.6 g/dL (13.5-17.5); IMMATURE GRAN ABSOLUTE AUTO 0.02 K/mm3 (0.00-0.10); IMMATURE GRAN PERCENT AUTO 0 % (0-1); LYMPHOCYTES ABSOLUTE AUTO 1.08 K/mm3 (0.84-5.20); LYMPHOCYTES PERCENT AUTO 17 % (21-46); MONOCYTES ABSOLUTE AUTO 0.51 K/mm3 (0.16-1.47); MONOCYTES PERCENT AUTO 8 % (4-13); Mean Corpuscular HGB Conc 35.4 g/dL (31.5-36.5); Mean Corpuscular Volume 95 fL (80-100); NEUTROPHILS ABSOLUTE AUTO 4.43 K/mm3 (1.96-9.15); NEUTROPHILS PERCENT AUTO 72 % (41-73); NRBC ABSOLUTE 0.00 K/mm3 (0.00-0.02); NRBC Auto 0.0 /100 WBC (0.0-0.2); Platelet Count 193 K/mm3 (150-400); RDW Coefficient Variation 12.3 % (11.7-14.2); RDW Standard Deviation 42.6 fL (35.1-46.3)
[2025-08-02] MEDS ORDERED: NS 1,000 ML IV SCH ×2 (11:25→14:00)
[2025-08-02 11:29] LABS: pH Blood Venous 7.45 (7.34-7.37)
[2025-08-02 11:39] LABS: Alanine Aminotransfer (ALT/SGP 110.0 U/L (12-78); Albumin, Blood 3.4 g/dL (3.4-5.0); Albumin/Globulin Ratio 0.8 (0.8-1.8); Anion Gap 12.0 mmol/L (3-11); Aspartate Aminotrans (AST/SGOT 99.0 U/L (12-37); Bilirubin, Total 1.6 mg/dL (0.1-1.0); Blood Urea Nitrogen 10.0 mg/dL (8-24); CO2, Blood 28.0 mmol/L (21-32); Calcium, Blood 9.7 mg/dL (8.5-10.1); Chloride, Blood 91.0 mmol/L (98-108); Creatinine, Blood 0.6 mg/dL (0.60-1.20); Globulin, Blood 4.0 g/dL (2.2-4.0); Glucose, Blood 583.0 mg/dL (70-99); Potassium, Blood 4.7 mmol/L (3.5-5.5); Sodium, Blood 126.0 mmol/L (136-145); Total Protein, Blood 7.4 g/dL (6.4-8.2)
[2025-08-02] MEDS ORDERED: HYDROmorphone HCl/Pf 1MG SYR IV ONE (14:00)
[2025-08-02 14:56] VITALS: BP 134/86
[2025-08-02 16:44] LABS: Anion Gap 9.0 mmol/L (3-11); Blood Urea Nitrogen 8.0 mg/dL (8-24); CO2, Blood 29.0 mmol/L (21-32); Calcium, Blood 8.8 mg/dL (8.5-10.1); Chloride, Blood 98.0 mmol/L (98-108); Creatinine, Blood 0.51 mg/dL (0.60-1.20); Glucose, Blood 370.0 mg/dL (70-99); Potassium, Blood 4.2 mmol/L (3.5-5.5); Sodium, Blood 132.0 mmol/L (136-145)
[2025-08-02] MEDS ORDERED: Percocet 5-3251 EACH PO (17:28)
[2025-08-02] MEDS ORDERED: OxyCODONE 5 mg/Acetamin 325 mg TABLET PO ONE (17:30)
== END 2025-08-02 17:36 | disposition home or self-care (01) ==
LOC: ER 10:09
PROVIDERS: Emergency Medicine; Physician Assistant
DX: E11.65 Type 2 diabetes mellitus with hyperglycemia (principal); R10.84 Generalized abdominal pain; F17.210 Nicotine dependence, cigarettes, uncomplicated; Z88.5 Allergy status to narcotic agent; Z79.4 Long term (current) use of insulin; Z79.899 Other long term (current) drug therapy; Z59.89 Other problems related to housing and economic circumstances
CPT/HCPCS: 80048; 80053; 82803; 82947; 83690; 85025; 93005; 93010; 96361; 96374; 96375; 96376; 99284-25; A9270; J1171; J2405; J7030